=== PATIENT | female | born 1935 | race Caucasian/White ===

== ENCOUNTER → 2017-05-16 | Outpatient (CLI) | payer MEDICARE ==
[2017-05-16 10:48] LABS: ANION GAP 9 (5-19); BLOOD UREA NITROGEN 15 mg/dL (7-20); CALCIUM 9.9 mg/dL (8.4-10.2); CARBON DIOXIDE 33 mmol/L (22-30); CHLORIDE 96 mmol/L (98-107); CHOLESTEROL 201.54 mg/dL (0-200); CREATININE RESULT 0.98 mg/dL (0.52-1.25); Direct HDL 69 mg/dL (>40); GLUCOSE 86 mg/dL (75-110); POTASSIUM 4.6 mmol/L (3.6-5.0); SODIUM 137.9 mmol/L (137-145); TRIGLYCERIDES 90 mg/dL (<150)
[2017-05-16 10:59] LABS: DIRECT LDL 108 mg/dL (<100)
== END ==
LOC: OD 09:32
PROVIDERS: ATTEND Family Medicine
DX: E78.5 Hyperlipidemia, unspecified (principal); I10 Essential (primary) hypertension; Z79.899 Other long term (current) drug therapy
CPT/HCPCS: 36415; 80048; 80061; 83036; 84443

== ENCOUNTER 2017-06-17 17:55 | Emergency (ER) | payer MEDICARE ==
--- NOTE | 2017-06-17 19:33 | ER Document Report ---
ED General - General Chief Complaint: Back Pain Stated Complaint: BACK PAIN Time Seen by Provider: 06/17/17 19:11 Notes: Patient is an 82-year-old female comes emergency department for chief complaint of pain in her mid to lower back. She states she has had this for years, she states that she is frustrated because she has only had an x-ray of her lower back and she feels like the pain is from her mid back. She states she also believes that she was told she has glass in her back although she is not sure how this happened. She denies any numbness, incontinence, fever, or recent injury. She states that she was referred to pain management and was placed in a brace but the brace did not fit, she is supposed to go back to them tomorrow but she wants additional imaging before that happens. She states that she is okay as she is sitting and not moving but when she tries to get up she can get sharp pains and feels like she gets stuck at times. She declines pain medication at this time. She does not take any daily pain medications. TRAVEL OUTSIDE OF THE [place] IN LAST 30 DAYS: No - Related Data Allergies/Adverse Reactions: Penicillins Allergy (Mild, Verified 03/23/15 11:35) Hives cephalexin monohydrate [From Keflex] Allergy (Unknown, Verified 03/23/15 11:35) unknown propoxyphene HCl [From Darvon] Allergy (Unknown, Verified 03/23/15 11:35) unknown Past Medical History - General Information source: Patient - Social History Smoking Status: Former Smoker Chew tobacco use (# tins/day): No Frequency of alcohol use: None Drug Abuse: None Lives with: Family Family History: Reviewed & Not Pertinent - Past Medical History Cardiac Medical History: Reports: Hx Hypertension Denies: Hx Coronary Artery Disease, Hx Heart Attack Pulmonary Medical History: Denies: Hx Asthma, Hx Bronchitis, Hx COPD, Hx Pneumonia Neurological Medical History: Denies: Hx Cerebrovascular Accident, Hx Seizures Musculoskeltal Medical History: Denies Hx Arthritis Past Surgical History: Denies: Hx Hysterectomy - Immunizations Hx Diphtheria, Pertussis, Tetanus Vaccination: No Review of Systems - Review of Systems Constitutional: No symptoms reported EENT: No symptoms reported Cardiovascular: No symptoms reported Respiratory: No symptoms reported Gastrointestinal: No symptoms reported Genitourinary: No symptoms reported Female Genitourinary: No symptoms reported Musculoskeletal: See HPI Skin: No symptoms reported Hematologic/Lymphatic: No symptoms reported Neurological/Psychological: No symptoms reported Physical Exam - Vital signs Vitals: Temp Pulse Resp BP Pulse Ox 97.3 F 89 17 145/87 H 93 06/17/17 22:47 06/17/17 22:47 06/17/17 22:47 06/17/17 22:47 06/17/17 22:47 Interpretation: Normal - General General appearance: Appears well, Alert In distress: None - Patient sitting on the bed without any signs of distress - HEENT Head: Normocephalic, Atraumatic Eyes: Normal Conjunctiva: Normal Extraocular movements intact: Yes Eyelashes: Normal Pupils: PERRL Mouth/Lips: Normal Mucous membranes: Normal Pharynx: Normal Neck: Normal - Respiratory Respiratory status: No respiratory distress Chest status: Nontender Breath sounds: Normal Chest palpation: Normal - Cardiovascular Rhythm: Regular Heart sounds: Normal auscultation Murmur: No - Abdominal Inspection: Normal Distension: No distension Bowel sounds: Normal Tenderness: Nontender Organomegaly: No organomegaly - Back Back: Tender - Patient with general tenderness in the mid and paraspinal areas of the thoracic spine mainly, minimally also of the lumbar spine. No saddle anesthesia. Moves all extremities with normal strength and normal ROM (per patient). Normal distal N/V exam. Ambulates with limited difficulty. - Extremities General upper extremity: Normal inspection, Nontender, Normal color, Normal ROM , Normal temperature General lower extremity: Normal inspection, Nontender, Normal color, Normal ROM , Normal temperature, Normal weight bearing. No: Kaitlin's sign - Neurological Neuro grossly intact: Yes Cognition: Normal Orientation: AAOx4 [place] Coma Scale Eye Opening: Spontaneous [place] Coma Scale Verbal: Oriented Leanna Coma Scale Motor: Obeys Commands Leanna Coma Scale Total: 15 Speech: Normal Motor strength normal: LUE, RUE, LLE, RLE Sensory: Normal - Psychological Associated symptoms: Normal affect, Normal mood - Skin Skin Temperature: Warm Skin Moisture: Dry Skin Color: Normal Course - Re-evaluation Re-evalutation: Patient is a poor historian. Additional family members to bedside, they summarized better, basically stated patient has had ongoing difficulties with chronic back pain, she spends a lot of time with her arm placed on her back and just to be comfortable, occasionally she has difficulty getting up because of sharp pains, she has not had any concerning deficits, fevers, or symptoms other than pain in her back. They just want additional imaging to take with her to her pain management appointment tomorrow. Patient is supposed to be fitted with a brace tomorrow. They also ask if they can give something to the patient for episodes where she has additional pain and Tylenol is not working. Imaging performed, shows compression fractures, degenerative disc disease, significant evidence for patient's pain but no acute abnormalities. Patient with no neurological deficits were concerning red flag symptoms on exam. She is actually very well-appearing on my exam. She declines pain medication during her stay. She can ambulate. Provided copy of the reports and CDs to patient and family, provided with some pain management for options, discussed return symptoms in detail, they state they will follow-up tomorrow with pain management at the clinic. They state satisfaction and agreement. - Vital Signs Vital signs: Temp Pulse Resp BP Pulse Ox 97.3 F 89 17 145/87 H 93 06/17/17 22:47 06/17/17 22:47 06/17/17 22:47 06/17/17 22:47 06/17/17 22:47 Discharge - Discharge Clinical Impression: Back pain Qualifiers: Back pain location: thoracic back pain Chronicity: chronic Back pain laterality : unspecified Qualified Code(s): M54.6 - Pain in thoracic spine Condition: Stable Disposition: HOME, SELF-CARE Additional Instructions: Your imaging shows compression fractures and degenerative changes in your thoracic spine. These are probably the main reasons for your pain. Please take the reports and CDs to your pain management appointment tomorrow for additional evaluation and management. He had been given Rhodelia if needed for pain, take 1/2-1 tablet if needed for pain, take a stool softener additionally if you take the pain medication to avoid constipation. Return to the emergency department for any concerning or worsening symptoms including fever, increased pain, numbness, inability to urinate, accidental bowel movements, or any other concerning symptoms. Prescriptions: Docusate Sodium [Colace 100 mg Capsule] 100 mg PO DAILY #30 capsule Hydrocodone/Acetaminophen [Rhodelia 5-325 mg Tablet] 0.5 - 1 tab PO ASDIR #12 tablet Referrals: ADAM BILLINGSLEY MD [Primary Care Provider] - Follow up as needed
--- NOTE | 2017-06-17 22:06 | RADIOLOGY REPORT (SQ) ---
EXAM DESCRIPTION: CT THORACIC SPINE WITHOUT COMPLETED DATE/TIME: 06/17/2017 9:24 pm REASON FOR STUDY: sharp pain with movement COMPARISON: Chest CT scan dated February 2015 TECHNIQUE: Axial images acquired through the thoracic spine without intravenous contrast. Images re viewed with lung, soft tissue and bone windows. Reconstructed coronal and sagittal MPR images review ed. Images stored on PACS. All CT scanners at this facility use dose modulation, iterative reconstruction, and/or weight based d osing when appropriate to reduce radiation dose to as low as reasonably achievable (ALARA). [facility]: Dose Right [facility]: CareDose [facility]: Dose Right [facility]: Teradose 4D [facility]: [employer] RADIATION DOSE: mGy. LIMITATIONS: None. FINDINGS: VISUALIZED LUNGS: No acute opacities. No pneumothorax. SOFT TISSUES: No soft tissue swelling. No masses. VERTEBRAL BODIES: There is compression of the superior endplate of the T5 vertebra with approximately 50% loss of the vertebral body height. There is anterior wedging of the T6 vertebra with approximat es 75 percent loss of the the vertebral body height anteriorly. There is almost complete compress ion of the T7 vertebra. The findings in the T5 and T6 vertebra appears slightly more pronounced as c ompared to the previous study. The complete compression of the T7 vertebra was not present on the pr evious study. No other vertebral compressions are identified. DISCS: No significant disc space narrowing. ALIGNMENT: There is kyphotic angulation of the thoracic spine TRANSVERSE PROCESSES, POSTERIOR ELEMENTS: No fractures. No dislocation. No acute findings. HARDWARE: None in the spine. VISUALIZED RIBS: No fractures. OTHER: No other significant finding. IMPRESSION: Multiple thoracic compression fractures as noted above show progression when correlated with the previous chest CT scan. Other findings as noted above TECHNICAL DOCUMENTATION: JOB ID: [id number] Quality ID # [id number]: Final reports with documentation of one or more dose reduction techniques (e.g., Au tomated exposure control, adjustment of the mA and/or kV according to patient size, use of iterative reconstruction technique) 2010 [employer]- All Rights Reserved
--- NOTE | 2017-06-17 22:15 | RADIOLOGY REPORT (SQ) ---
EXAM DESCRIPTION: CT LUMBAR SPINE WITHOUT COMPLETED DATE/TIME: 06/17/2017 9:24 pm REASON FOR STUDY: sharp pain with movement COMPARISON: Abdominal CT scan dated February 2015 TECHNIQUE: Axial images acquired through the lumbar spine without intravenous contrast. Images revi ewed with lung, soft tissue and bone windows. Reconstructed coronal and sagittal MPR images reviewed . All images stored on PACS. All CT scanners at this facility use dose modulation, iterative reconstruction, and/or weight based d osing when appropriate to reduce radiation dose to as low as reasonably achievable (ALARA). [facility]: Dose Right [facility]: CareDose [facility]: Dose Right [facility]: Teradose 4D [facility]: [employer] RADIATION DOSE: mGy. LIMITATIONS: None. FINDINGS: SEGMENTATION: Normal. No transitional anatomy. ALIGNMENT: Normal. VERTEBRAL BODIES: There is compression of the superior endplate of the L2 vertebra with approximately 25% decrease in the vertebral body height. There is compression of the superior and inferior endpla baldomero of the L3 vertebra with approximately 50% decrease in the vertebral body height. There is compre ssion of the superior endplate of the L4 vertebra with approximately 50% decrease in the vertebral andreea dy heights. None of these findings were present on the previous abdominal CT scan. No other vertebr al compressions are identified. DISCS: No significant protrusions. Study limited by lack of intrathecal contrast. PEDICLES, TRANSVERSE PROCESSES: No fractures. No dislocation. No acute findings. FACETS, POSTERIOR ELEMENTS: No fractures. No dislocation. Degenerative changes are identified in th e facet articulations at multiple levels HARDWARE: None in the spine. VISUALIZED RIBS: No fractures. SOFT TISSUES: No significant or acute finding in adjacent soft tissues. OTHER: No other significant finding. IMPRESSION: Multiple vertebral compressions involving the L 2, L3, and L4 vertebra as noted above. These findings were not present on the previous abdominal CT scan. Clinical correlation is recommend ed. Other findings as noted above TECHNICAL DOCUMENTATION: JOB ID: [id number] Quality ID # [id number]: Final reports with documentation of one or more dose reduction techniques (e.g., Au tomated exposure control, adjustment of the mA and/or kV according to patient size, use of iterative reconstruction technique) 2010 [employer]- All Rights Reserved
[2017-06-17] MEDS ORDERED: HYDROCODONE/ACETAMINOPHEN 5-325 MG 6 TAB/DSPK PO PRN (22:30)
[2017-06-17 22:49] VITALS: BP 145/87
== END 2017-06-17 23:15 | disposition home or self-care (01) ==
LOC: ER 17:55
DX: M54.6 Pain in thoracic spine (principal); G89.29 Other chronic pain; I10 Essential (primary) hypertension; Z87.891 Personal history of nicotine dependence; Z88.0 Allergy status to penicillin
CPT/HCPCS: 99284; 72128; 72131; A9270

== ENCOUNTER 2017-07-06 15:05 | Emergency (ER) | payer MEDICARE ==
[2017-07-06 15:12] VITALS: BP 151/87
[2017-07-06] MEDS ORDERED: ASPIRIN 81 MG TABLET, CHEWABLE PO ONE (15:28)
--- NOTE | 2017-07-06 15:36 | ER Document Report ---
ED Medical Screen (RME) - General Mode of Arrival: Wheelchair TRAVEL OUTSIDE OF THE [place] IN LAST 30 DAYS: No - General Chief Complaint: Leg Swelling Stated Complaint: LEG PAIN Time Seen by Provider: 07/06/17 15:20 Notes: Patient is an 82 year old female presenting to the emergency department for swelling, blistering, and erythema to her lower extremities. Patient states she first noticed her legs on Friday and they worsened yesterday. Patient denies any recent long trips, recent surgery, personal or family history of blood clots , history of kidney problems or anemia. Patient did fall x1 month ago and had fractures in her vertebrae. Patient has been seeing [facility] and has been wearing a back brace for such. Patient's brother states that the patient has not had her feet raised for about 1 month because she sits and sleeps in a recliner due to her back injury. Patient states that she is also slightly short of breath which improves with laying flat. Patient is a former smoker. (JUSTYNA DARDEN) - Related Data Allergies/Adverse Reactions: Penicillins Allergy (Mild, Verified 07/06/17 15:11) Hives cephalexin monohydrate [From Keflex] Allergy (Unknown, Verified 07/06/17 15:11) unknown propoxyphene HCl [From Darvon] Allergy (Unknown, Verified 07/06/17 15:11) unknown Past Medical History - Social History Chew tobacco use (# tins/day): No Frequency of alcohol use: None Drug Abuse: None - Past Medical History Cardiac Medical History: Reports: Hx Hypertension Denies: Hx Coronary Artery Disease, Hx Heart Attack Pulmonary Medical History: Denies: Hx Asthma, Hx Bronchitis, Hx COPD, Hx Pneumonia Neurological Medical History: Denies: Hx Cerebrovascular Accident, Hx Seizures Renal/ Medical History: Denies: Hx Peritoneal Dialysis Musculoskeltal Medical History: Denies Hx Arthritis Past Surgical History: Denies: Hx Hysterectomy - Immunizations Hx Diphtheria, Pertussis, Tetanus Vaccination: No Physical Exam - Vital signs Vitals: Temp Pulse Resp BP Pulse Ox 97.9 F 82 18 151/87 H 97 07/06/17 15:12 07/06/17 15:12 07/06/17 15:12 07/06/17 15:12 07/06/17 15:12 - Notes Notes: GENERAL: Alert, interacts well. No acute distress. LUNGS: Clear to auscultation bilaterally, no wheezes, rales, or rhonchi. No respiratory distress. HEART: Regular rate and rhythm. No murmurs, gallops, or rubs. EXTREMITIES: Moves all 4 extremities spontaneously. Left leg: Erythema 3/[address] the knee. 3+ pitting edema above the left knee. Clear fluid filled blisters, petechiae, clear fluid seeping from the leg. Right leg: Erythema, 1+ pitting edema level to the knee. NEUROLOGICAL: Alert and oriented x3. Normal speech. (JUSTYNA DARDEN) - Vital Signs Vital signs: Temp Pulse Resp BP Pulse Ox 97.9 F 82 18 151/87 H 97 07/06/17 15:12 07/06/17 15:12 07/06/17 15:12 07/06/17 15:12 07/06/17 15:12 Scribe Documentation - Scribe Written by Scribe:: Pamela Gomez 07/06/17 16:03 acting as scribe for :: Amadeo
--- NOTE | 2017-07-06 16:06 | ER Document Report ---
ED General - General Chief Complaint: Leg Swelling Stated Complaint: LEG PAIN Time Seen by Provider: 07/06/17 15:20 Mode of Arrival: Wheelchair Information source: Patient Notes: 82-year-old female presents with complaints of left lower extremity swelling redness as of this morning. Patient was seen at urgent care noted to have a positive d-dimer and sent in for evaluation for possible blood clot Patient refuses to lay down have blood work drawn or be admitted TRAVEL OUTSIDE OF THE [place] IN LAST 30 DAYS: No - HPI Onset: This morning Onset/Duration: Sudden Quality of pain: Achy Severity: Mild Pain Level: 1 Associated symptoms: Other Exacerbated by: Denies Relieved by: Denies Similar symptoms previously: No Recently seen / treated by doctor: Yes - Related Data Allergies/Adverse Reactions: Penicillins Allergy (Mild, Verified 07/06/17 15:11) Hives cephalexin monohydrate [From Keflex] Allergy (Unknown, Verified 07/06/17 15:11) unknown propoxyphene HCl [From Darvon] Allergy (Unknown, Verified 07/06/17 15:11) unknown Past Medical History - Social History Smoking Status: Former Smoker Cigarette use (# per day): No Chew tobacco use (# tins/day): No Smoking Education Provided: No Frequency of alcohol use: None Drug Abuse: None Family History: Reviewed & Not Pertinent - Past Medical History Cardiac Medical History: Reports: Hx Hypertension Denies: Hx Coronary Artery Disease, Hx Heart Attack Pulmonary Medical History: Denies: Hx Asthma, Hx Bronchitis, Hx COPD, Hx Pneumonia Neurological Medical History: Denies: Hx Cerebrovascular Accident, Hx Seizures Renal/ Medical History: Denies: Hx Peritoneal Dialysis Musculoskeltal Medical History: Denies Hx Arthritis Past Surgical History: Denies: Hx Hysterectomy - Immunizations Hx Diphtheria, Pertussis, Tetanus Vaccination: No Review of Systems - Review of Systems Notes: REVIEW OF SYSTEMS: CONSTITUTIONAL : Denies fever, chills, or sweats. Denies recent illness. EENT: Denies eye, ear, throat, or mouth pain or symptoms. Denies nasal or sinus congestion or discharge. Denies throat, tongue, or mouth swelling or difficulty swallowing. CARDIOVASCULAR: Denies chest pain. Denies palpitations or racing or irregular heart beat. Denies ankle edema. RESPIRATORY: Denies cough, cold, or chest congestion. Denies shortness of breath, difficulty breathing, or wheezing. GASTROINTESTINAL: Denies abdominal pain or distention. Denies nausea, vomiting , or diarrhea. Denies blood in vomitus, stools, or per rectum. Denies black, tarry stools. Denies constipation. GENITOURINARY: Denies difficulty urinating, painful urination, burning, frequency, blood in urine, or discharge. FEMALE GENITOURINARY: Denies vaginal bleeding, heavy or abnormal periods, irregular periods. Denies vaginal discharge or odor. MUSCULOSKELETAL: Denies back or neck pain or stiffness. Denies joint pain or swelling. SKIN: Admits to left lower extremity erythema HEMATOLOGIC : Denies easy bruising or bleeding. LYMPHATIC: Denies swollen, enlarged glands. NEUROLOGICAL: Denies confusion or altered mental status. Denies passing out or loss of consciousness. Denies dizziness or lightheadedness. Denies headache. Denies weakness or paralysis or loss of use of either side. Denies problems with gait or speech. Denies sensory loss, numbness, or tingling. Denies seizures. PSYCHIATRIC: Denies anxiety or stress. Denies depression, suicidal ideation, or homicidal ideation. ALL OTHER SYSTEMS REVIEWED AND NEGATIVE. PHYSICAL EXAMINATION: GENERAL: Well-appearing, well-nourished and in no acute distress. HEAD: Atraumatic, normocephalic. EYES: Pupils equal round and reactive to light, extraocular movements intact, conjunctiva are normal. ENT: Nares patent, oropharynx clear without exudates. Moist mucous membranes. NECK: Normal range of motion, supple without lymphadenopathy LUNGS: Breath sounds clear to auscultation bilaterally and equal. No wheezes rales or rhonchi. HEART: Regular rate and rhythm without murmurs ABDOMEN: Soft, nontender, nondistended abdomen. No guarding, no rebound. No masses appreciated. Female : deferred Musculoskeletal: Normal range of motion, no pitting or edema. No cyanosis. NEUROLOGICAL: Cranial nerves grossly intact. Normal speech, normal gait. Normal sensory, motor exams PSYCH: Normal mood, normal affect. SKIN: +1 pitting edema of the left lower extremity with redness midshin Dictation was performed using [employer] voice recognition software Physical Exam - Vital signs Vitals: Temp Pulse Resp BP Pulse Ox 97.9 F 82 18 151/87 H 97 07/06/17 15:12 07/06/17 15:12 07/06/17 15:12 07/06/17 15:12 07/06/17 15:12 Course - Re-evaluation Re-evalutation: 07/06/17 19:33 Doppler was negative, patient overall looks well admits to chronic back pain but otherwise no distress. She defers on admission further imaging as well as lab work. Brother who is in the room request patient be admitted for social reasons, when I spoke to the patient herself she refuses again As a result brother is agreeable to take patient home I did outline the cellulitis and have given very strict return precautions Patient has been told that she must return immediately if the symptoms do worsen After performing a Medical Screening Examination, I estimate there is LOW risk for OPEN FRACTURE, COMPARTMENT SYNDROME, TENDON RUPTURE, ACUTE NEUROVASCULAR INJURY, or RETAINED FOREIGN BODY, thus I consider the discharge disposition reasonable. Also, there is no evidence or peritonitis, sepsis, or toxicity. I have reevaluated this patient multiple times and no significant life threatening changes are noted. The patient and I have discussed the diagnosis and risks, and we agree with discharging home with close follow-up with the understanding that symptoms and presentations can change. We also discussed returning to the Emergency Department immediately if new or worsening symptoms occur. We have discussed the symptoms which are most concerning (e.g., changing or worsening pain, fever, numbness, weakness, cool or painful digits) that necessitate immediate return. - Vital Signs Vital signs: Temp Pulse Resp BP Pulse Ox 97.9 F 82 18 151/87 H 97 07/06/17 15:12 07/06/17 15:12 07/06/17 15:12 07/06/17 15:12 07/06/17 15:12 - Diagnostic Test Radiology reviewed: Image reviewed, Reports reviewed - No DVT Discharge - Discharge Clinical Impression: Cellulitis Qualifiers: Site of cellulitis: extremity Site of cellulitis of extremity: lower extremity Laterality: left Qualified Code(s): L03.116 - Cellulitis of left lower limb Condition: Stable Disposition: HOME, SELF-CARE Instructions: Cellulitis ([facility]) Prescriptions: Clindamycin HCl 300 mg PO Q6 #40 capsule Referrals: ADAM BILLINGSLEY MD [Primary Care Provider] - Follow up as needed
--- NOTE | 2017-07-06 16:44 | RADIOLOGY REPORT (SQ) ---
EXAM DESCRIPTION: VENOUS UNILATERAL LOWER COMPLETED DATE/TIME: 07/06/2017 4:36 pm REASON FOR STUDY: left leg swelling, 2x larger than right leg COMPARISON: None. TECHNIQUE: Dynamic and static dickson scale and color images acquired of the left leg venous system. Se lected spectral images acquired with additional compression and augmentation maneuvers. The contralat eral common femoral vein and saphenofemoral junction were also imaged. Images stored on PACS. LIMITATIONS: None. FINDINGS: COMMON FEMORAL: Normal phasicity, compression and augmentation. No visualized echogenic ma terial on dickson scale. No defects on color images. FEMORAL: Normal compression and augmentation. No visualized echogenic material on dickson scale. No defe cts on color images. POPLITEAL: Normal compression, augmentation. No visualized echogenic material on dickson scale. No defec ts on color images. CALF VESSELS: Normal compression, augmentation. No visualized echogenic material on dickson scale. No de fects on color images. GSV and SSV: Normal compression, augmentation. No visualized echogenic material on dickson scale. No def ects on color images. ANY DEEP VENOUS INSUFFICIENCY: Not evaluated. ANY EVIDENCE OF POPLITEAL CYST: No. OTHER: No other significant finding. CONTRALATERAL COMMON FEMORAL VEIN AND SAPHENOFEMORAL JUNCTION: Normal phasicity, compression and augmentation. No visualized echogenic material on dickson scale. No de fects on color images. IMPRESSION: NO EVIDENCE DVT OR SVT IN THE LEFT LEG. TECHNICAL DOCUMENTATION: JOB ID: [id number] [employer]- All Rights Reserved
--- NOTE | 2017-07-07 06:27 | EKG REPORT ---
SEVERITY:- ABNORMAL ECG - SINUS RHYTHM CONSIDER LEFT VENTRICULAR HYPERTROPHY : Confirmed by: Graciela Potter MD 07-Jul-2017 06:26:15
== END 2017-07-06 17:20 | disposition home or self-care (01) ==
LOC: ER 15:05
DX: L03.116 Cellulitis of left lower limb (principal); G89.29 Other chronic pain; M54.9 Dorsalgia, unspecified; Z88.0 Allergy status to penicillin; Z87.891 Personal history of nicotine dependence
CPT/HCPCS: 93005; 99284; 93971; 93010; A9270

== ENCOUNTER 2017-07-28 14:23 | Inpatient (IN) | payer MEDICARE ==
--- NOTE | 2017-07-28 14:35 | ER Document Report ---
ED Fall - General Stated Complaint: PREVIOUS FALL Time Seen by Provider: 07/28/17 14:35 TRAVEL OUTSIDE OF THE [place] IN LAST 30 DAYS: No - Related data Allergies/Adverse Reactions: Penicillins Allergy (Mild, Verified 07/06/17 15:11) Hives cephalexin monohydrate [From Keflex] Allergy (Unknown, Verified 07/06/17 15:11) unknown propoxyphene HCl [From Darvon] Allergy (Unknown, Verified 07/06/17 15:11) unknown Past Medical History - Social History Family History: Reviewed & Not Pertinent - Past Medical History Cardiac Medical History: Reports: Hx Hypertension Denies: Hx Coronary Artery Disease, Hx Heart Attack Pulmonary Medical History: Denies: Hx Asthma, Hx Bronchitis, Hx COPD, Hx Pneumonia Neurological Medical History: Denies: Hx Cerebrovascular Accident, Hx Seizures Renal/ Medical History: Denies: Hx Peritoneal Dialysis Musculoskeltal Medical History: Denies Hx Arthritis Past Surgical History: Denies: Hx Hysterectomy - Immunizations Hx Diphtheria, Pertussis, Tetanus Vaccination: No
--- NOTE | 2017-07-28 14:47 | ER Document Report ---
HPI - HPI Patient complains to provider of: Injured left knee Onset: This morning Onset/Duration: Sudden Context: 82-year-old female slipped and fell on her left/side knee while leaving Dr. Nielsen's office. He checked her out in the office and said she was okay but her brother who is now living with her wanted her to be rechecked, so after they got her to the car via wheelchair he called EMS to bring her to the ER because she could not ambulate. She does have a walker but she was not using it , only a "walking stick". The brother wants her admitted to the hospital because he states he could not get her in the house and he has to go back to [facility] there is a female in the room who was unable to physically help her as well. I have called Trell Mcguire RN to see if she can help with the situation. Associated Symptoms: None Exacerbated by: Movement Relieved by: Denies Similar symptoms previously: No Recently seen / treated by doctor: Yes - dr nielsen office - ROS ROS below otherwise negative: Yes Systems Reviewed and Negative: Yes All other systems reviewed and negative Past Medical History - General Information source: Patient - Social History Smoking Status: Unknown if Ever Smoked Frequency of alcohol use: None Drug Abuse: None Lives with: Alone Family History: Reviewed & Not Pertinent - Past Medical History Cardiac Medical History: Reports: Hx Hypertension Renal/ Medical History: Denies: Hx Peritoneal Dialysis Surgical Hx: Negative - Immunizations Hx Diphtheria, Pertussis, Tetanus Vaccination: No Vertical Provider Document - CONSTITUTIONAL Agree With Documented VS: Yes Exam Limitations: No Limitations General Appearance: Mild Distress - left knee - INFECTION CONTROL TRAVEL OUTSIDE OF THE [place] IN LAST 30 DAYS: No - HEENT HEENT: Normocephalic - NECK Neck: Supple - non tender - RESPIRATORY Respiratory: Breath Sounds Normal, No Respiratory Distress - CARDIOVASCULAR Cardiovascular: Regular Rate, Regular Rhythm - GI/ABDOMEN Gastrointestinal: Abdomen Soft, Abdomen Non-Tender, No Organomegaly - BACK Back: Normal Inspection - non tender spine - MUSCULOSKELETAL/EXTREMETIES Musculoskeletal/Extremeties: Tender - lateral left knee and behind the knee, Edema - bilateral lower leg, left more than right, 2 + diana DP, tender left medial thigh muscle with limited left knee flexion, no charlie tenderness, bruising lateral left knee Notes: non tender c spine, arms, t and L spine, non tender with hip palpation and pelvic movement - NEURO Level of Consciousness: Awake, Alert Motor/Sensory: No Motor Deficit, No Sensory Deficit - DERM Integumentary: Warm, Dry, No Rash Course - Re-evaluation Re-evalutation: 07/28/17 16:12 X-ray is negative knee. 07/28/17 17:10 unable to ambulate with assistance, able to bear weight but can't move forward on either leg. because of this ordered left hip xray as she was pointing to posterior left thigh for pain location. 07/28/17 19:13 dr lindquist is admitting to observation medical floor. ordered diet for the pt. explained to pt and her brother. I also called dr. nielsen to let him know what was going on. - Laboratory Result Diagrams: 07/28/17 18:15 07/28/17 18:15 Discharge - Discharge Clinical Impression: Left knee injury, left pubic ramas fracture, new non abulatory due to fracture Condition: Stable Disposition: ADMITTED OBSERVATION Admitting Provider: Hospitalist Unit Admitted: Medical Floor Referrals: ADAM NIELSEN MD [HONORARY] - Follow up as needed ABEBA BORREGO MD [ACTIVE STAFF] - Follow up as needed
--- NOTE | 2017-07-28 15:59 | RADIOLOGY REPORT (SQ) ---
EXAM DESCRIPTION: KNEE LEFT 4 VIEW COMPLETED DATE/TIME: 07/28/2017 3:46 pm REASON FOR STUDY: slipped injured left knee COMPARISON: None. NUMBER OF VIEWS: Four views. TECHNIQUE: AP, lateral, and both oblique radiographic images acquired of the left knee. LIMITATIONS: None. FINDINGS: MINERALIZATION: Osteopenia. BONES: No acute fracture or dislocation. No worrisome bone lesions. JOINT: No effusion. SOFT TISSUES: No soft tissue swelling. No radio-opaque foreign body. OTHER: No other significant finding. IMPRESSION: NO RADIOGRAPHIC EVIDENCE OF ACUTE INJURY. TECHNICAL DOCUMENTATION: JOB ID: [id number] [employer] All Rights Reserved
[2017-07-28] MEDS ORDERED: ONDANSETRON 4 MG TAB.RAPDIS PO ONE (16:27)
[2017-07-28] MEDS ORDERED: HYDROCODONE/ACETAMINOPHEN 5-325 MG TABLET PO ONE (16:27)
--- NOTE | 2017-07-28 17:21 | RADIOLOGY REPORT (SQ) ---
EXAM DESCRIPTION: HIP LEFT AP/LATERAL COMPLETED DATE/TIME: 07/28/2017 4:57 pm REASON FOR STUDY: fall COMPARISON: None. NUMBER OF VIEWS: Two views. TECHNIQUE: AP pelvis and additional frog-leg view of the left hip. LIMITATIONS: None. FINDINGS: MINERALIZATION: Normal. LEFT HIP: No fracture or dislocation. No worrisome bone lesions. RIGHT HIP: No fracture or dislocation. No worrisome bone lesions. PUBIS AND ISCHIUM: There appear to be fractures of the left pubic rami. PELVIS: No fracture. SACRUM: No fracture or dislocation. No worrisome bone lesions. LOWER LUMBAR SPINE: No fracture or dislocation. No worrisome bone lesions. No significant disc disea se. SOFT TISSUES: No findings. OTHER: No other significant finding. IMPRESSION: Fractures of the left pubic rami. TECHNICAL DOCUMENTATION: JOB ID: [id number] [employer]- All Rights Reserved
[2017-07-28] MEDS ORDERED: ACETAMINOPHEN 325 MG TABLET PO ONE (17:45)
[2017-07-28 18:30] LABS: ABSOLUTE BASOPHILS # (AUTO) 0.1 10^3/uL (0.0-0.2); ABSOLUTE EOSINOPHILS # (AUTO) 0.1 10^3/uL (0.0-0.6); ABSOLUTE MONOCYTES (AUTO) 0.7 10^3/uL (0.1-1.4); ABSOLUTE NEUT (AUTO) 5.9 10^3/uL (1.7-8.2); BASOPHILS % (AUTO) 0.9 % (0-2); EOSINOPHILS % (AUTO) 1.4 % (0-6); HEMATOCRIT 39.7 % (36.0-47.0); HEMOGLOBIN 13.1 g/dL (12.0-15.5); HGB HCT DIFFERENCE -0.4; LYMPHOCYTES % (AUTO) 12.9 % (13-45); MEAN CORPUSCULAR HEMOGLOBIN 30.4 pg (27.0-33.4); MEAN CORPUSCULAR HGB CONC 32.9 g/dL (32.0-36.0); MEAN CORPUSCULAR VOLUME 92 fl (80-97); MONOCYTES % (AUTO) 9.3 % (3-13); RED CELL DISTRIBUTION WIDTH 13.1 % (11.5-14.0); SEGMENTED NEUTROPHILS % (AUTO) 75.5 % (42-78); WHITE BLOOD COUNT 7.9 10^3/uL (4.0-10.5)
[2017-07-28 18:50] LABS: ALANINE AMINOTRANSFERASE 43 U/L (9-52); ALBUMIN 3.7 g/dL (3.5-5.0); ALKALINE PHOSPHATASE 132 U/L (38-126); ANION GAP 8 (5-19); ASPARTATE AMINO TRANSFERASE 63 U/L (14-36); BILIRUBIN,DIRECT 0.4 mg/dL (0.0-0.4); BILIRUBIN,TOTAL 0.6 mg/dL (0.2-1.3); BLOOD UREA NITROGEN 17 mg/dL (7-20); CARBON DIOXIDE 34 mmol/L (22-30); CHLORIDE 98 mmol/L (98-107); CREATININE RESULT 0.78 mg/dL (0.52-1.25); GLUCOSE 114 mg/dL (75-110); POTASSIUM 3.5 mmol/L (3.6-5.0); SODIUM 140.2 mmol/L (137-145); TOTAL PROTEIN 6.3 g/dL (6.3-8.2)
[2017-07-28] MEDS ORDERED: ACETAMINOPHEN 325 MG TABLET PO PRN (19:10)
[2017-07-28] MEDS ORDERED: HYDRALAZINE HCL INJ/PF 20 MG/1 ML SDV IV PRN (19:10)
[2017-07-28] MEDS ORDERED: MAG HYDROX/AL HYDROX/SIMETH SUSP 30 ML UDCUP PO PRN (19:11)
[2017-07-28] MEDS: KETOROLAC TROMETHAMINE INJ/PF 30 MG/1 ML SDV IV PRN (20:36)
[2017-07-28] MEDS: HEPARIN SOD (PORCINE) 5,000 UNIT/ML 1 ML SYRINGE SUBCUT SCH (23:08)
[2017-07-29] MEDS: CLINDAMYCIN HCL 150 MG CAPSULE PO SCH ×3 (01:50→19:34)
--- NOTE | 2017-07-29 05:32 | PDOC H&P ---
History of Present Illness Admission Date/PCP: 07/28/17 19:11 Patient complains of: Falls and hip pain History of Present Illness: PRAMOD CHRISTOPHER is a 82 year old female with a past medical history of hypertension and dementia who is a very poor historian and is brought to the emergency room after sustaining a fall left hip resulting in inability to tolerate weight or ambulate. Patient was at her primary care providers office Dr. Nielsen when attempted ambulation without front wheeled walker resulting in mechanical fall. She denies prior or subsequent headache, lightheadedness, dizziness, head trauma, loss of consciousness, chest pain or palpitations. In the emergency room she is found to have a left-sided pelvic fracture and inability to tolerate weight and subsequently referred to the hospitalist for admission. Past Medical History Cardiac Medical History: Reports: Hypertension Denies: Coronary Artery Disease, Myocardial Infarction Pulmonary Medical History: Denies: Asthma, Bronchitis, Chronic Obstructive Pulmonary Disease (COPD), Pneumonia Neurological Medical History: Denies: Seizures Musculoskeltal Medical History: Denies: Arthritis Psychiatric Medical History: Reports: Dementia Denies: Depression Hematology: Denies: Anemia Past Surgical History Past Surgical History: Denies: Hysterectomy Social History Information Source: Emergency Med Personnel Lives with: Alone Smoking Status: Unknown if Ever Smoked Frequency of Alcohol Use: None Hx Recreational Drug Use: No Drugs: None Hx Prescription Drug Abuse: No - Advance Directive Resuscitation Status: Full Code Family History Family History: Other - Unknown to the patient Parental Family History Reviewed: No - Unknown to the patient Children Family History Reviewed: No Sibling(s) Family History Reviewed.: No Medication/Allergy Home Medications: Bisoprolol/Hydrochlorothiazide [Ziac 2.5-6.25 mg Tablet] 1 tab PO DAILY Allergies/Adverse Reactions: Penicillins Allergy (Mild, Verified 07/06/17 15:11) Hives cephalexin monohydrate [From Keflex] Allergy (Unknown, Verified 07/06/17 15:11) unknown propoxyphene HCl [From Darvon] Allergy (Unknown, Verified 07/06/17 15:11) unknown Review of Systems ROS unobtainable: Due to mental status Physical Exam Vital Signs: Temp Pulse Resp BP Pulse Ox 98.4 F 88 24 H 132/74 H 97 07/28/17 23:29 07/28/17 23:29 07/28/17 23:29 07/28/17 23:29 07/28/17 23:29 Intake & Output 07/27/17 07/28/17 07/29/17 11:59 11:59 11:59 Intake Total 0 Output Total 0 Balance 0 Weight 46 kg General appearance: PRESENT: cooperative, mild distress, thin Head exam: PRESENT: atraumatic, normocephalic Eye exam: PRESENT: conjunctiva pink, EOMI, PERRLA. ABSENT: scleral icterus Ear exam: PRESENT: bleeding Mouth exam: PRESENT: moist, tongue midline Neck exam: ABSENT: carotid bruit, JVD, lymphadenopathy, thyromegaly Respiratory exam: PRESENT: clear to auscultation diana. ABSENT: rales, rhonchi, wheezes Cardiovascular exam: PRESENT: RRR. ABSENT: diastolic murmur, rubs, systolic murmur Pulses: PRESENT: normal dorsalis pedis pul Vascular exam: PRESENT: normal capillary refill GI/Abdominal exam: PRESENT: normal bowel sounds, soft. ABSENT: distended, guarding, mass, organolmegaly, rebound, tenderness Rectal exam: PRESENT: deferred Extremities exam: PRESENT: tenderness, other - Erythema bilateral, lower extremity. ABSENT: calf tenderness, clubbing, pedal edema Musculoskeletal exam: PRESENT: tenderness - Range of motion with hip flexion reproduces pain to the left hip. ABSENT: ambulatory, deformity, dislocation Neurological exam: PRESENT: alert, awake, oriented to person, CN II-XII grossly intact. ABSENT: oriented to place, oriented to time, oriented to situation Psychiatric exam: PRESENT: appropriate affect, normal mood. ABSENT: homicidal ideation, suicidal ideation Results Impressions: Knee X-Ray 07/28/17 14:46 IMPRESSION: NO RADIOGRAPHIC EVIDENCE OF ACUTE INJURY. Hip X-Ray 07/28/17 16:26 IMPRESSION: Fractures of the left pubic rami. Assessment & Plan - Diagnosis (1) Pelvic fracture Is this a current diagnosis for this admission?: Yes Plan: Secondary to fall likely vitamin D deficient, noncompliance with walker and recurrent falls. Symptomatic management and physical therapy (2) Hypertension Is this a current diagnosis for this admission?: Yes Plan: Home regiment of AILYN inhibitor and hydrochlorothiazide. (3) Falls Is this a current diagnosis for this admission?: Yes Plan: Physical therapy will likely require rehab (4) Cellulitis, leg Is this a current diagnosis for this admission?: Yes Plan: Bilateral lower extremity with chronic vascular changes likely component of venous stasis. Recently started on clindamycin will continue. (5) Vascular dementia Qualifiers: Dementia behavioral disturbance: without behavioral disturbance Qualified Code(s): F01.50 - Vascular dementia without behavioral disturbance Is this a current diagnosis for this admission?: Yes Plan: Supportive care - Time Time Spent: 50 to 70 Minutes - Inpatient Certification Medical Necessity: Need Close Monitoring Due to Risk of Patient Decompensation Post Hospital Care: D/C Aviation Medicine Specialist Documentation
[2017-07-29] MEDS: HEPARIN SOD (PORCINE) 5,000 UNIT/ML 1 ML SYRINGE SUBCUT SCH ×3 (05:36→21:41)
[2017-07-29 05:53] LABS: ABSOLUTE BASOPHILS # (AUTO) 0.1 10^3/uL (0.0-0.2); ABSOLUTE EOSINOPHILS # (AUTO) 0.2 10^3/uL (0.0-0.6); ABSOLUTE LYMPHOCYTES (AUTO) 0.9 10^3/uL (0.5-4.7); ABSOLUTE MONOCYTES (AUTO) 0.5 10^3/uL (0.1-1.4); ABSOLUTE NEUT (AUTO) 3.2 10^3/uL (1.7-8.2); BASOPHILS % (AUTO) 1.3 % (0-2); EOSINOPHILS % (AUTO) 3.6 % (0-6); HEMATOCRIT 33.6 % (36.0-47.0); HEMOGLOBIN 11.3 g/dL (12.0-15.5); HGB HCT DIFFERENCE 0.3; LYMPHOCYTES % (AUTO) 19.5 % (13-45); MEAN CORPUSCULAR HEMOGLOBIN 30.4 pg (27.0-33.4); MEAN CORPUSCULAR HGB CONC 33.7 g/dL (32.0-36.0); MEAN CORPUSCULAR VOLUME 90 fl (80-97); MONOCYTES % (AUTO) 10.4 % (3-13); RED BLOOD COUNT 3.72 10^6/uL (3.72-5.28); SEGMENTED NEUTROPHILS % (AUTO) 65.2 % (42-78); WHITE BLOOD COUNT 4.8 10^3/uL (4.0-10.5)
[2017-07-29] MEDS ORDERED: BISOPROLOL PO SCH (10:00)
[2017-07-29] MEDS ORDERED: HYDROCHLOROTHIAZIDE PO SCH (10:00)
--- NOTE | 2017-07-29 10:29 | Physician Advisory Note ---
Physician Advisor ProgressNote .: Pursuant to the plan for [facility], I have reviewed the medical record for this patient. Physician Advisor Statement: Please consider documenting, if you agree: 1. "underweight with protein-calorie malnutrition [state mild, mod, or severe] with BMI 18.5, ..." [?wt loss, ?appetite loss, ] [if possible, give specifics on intake, wt loss, loss of SQ fat & muscle mass, diminished hand vp product strength, & clinical importance such as (A) nutritional assessment ordered, (B) modified diet or supplements ordered, (C) additional labs ordered, (D) prolonged wound healing time, (E) delayed infxn clearance] Status: Appropriately Obs for fall/pelvic fx/pain, being tx'd with prn Tylenol/Ketorolac , PT. If she evidences need for frequent IV meds w/close monitoring needed, or develops another acute clinical issue that requires ongoing care/monitoring that could not be achieved in an outpt setting such as SNF or [facility], please document them & attending concerns, and status determination may re-assessed. (Unfortunately, payers require this level of need for pt to be Inpt, even tho' we know the pt couldn't get to a SNF or [facility] right now without 3 MNs Inpt 1st. Very sad Catch-22 for these patients, upsetting for those who care for them.) CK
[2017-07-29] MEDS: HYDROCHLOROTHIAZIDE 25 MG TABLET PO SCH (10:53)
[2017-07-29] MEDS: DOCUSATE SODIUM 100 MG CAPSULE PO SCH ×2 (11:16→19:36)
[2017-07-29] MEDS ORDERED: ATENOLOL 50 MG TABLET PO ONE (13:00)
[2017-07-29] MEDS: ATENOLOL 50 MG TABLET PO SCH (13:04)
[2017-07-29] MEDS: KETOROLAC TROMETHAMINE INJ/PF 30 MG/1 ML SDV IV PRN (13:58)
--- NOTE | 2017-07-29 18:21 | PDOC PROGRESS REPORT ---
Subjective Progress Note for:: 07/29/17 Subjective:: Seen and examined continue current regimen. Physical Exam Vital Signs: Temp Pulse Resp BP Pulse Ox 98.8 F 85 16 130/101 H 95 07/29/17 15:29 07/29/17 15:29 07/29/17 15:29 07/29/17 15:29 07/29/17 15:29 Intake & Output 07/28/17 07/29/17 07/30/17 06:59 06:59 06:59 Intake Total 0 480 Output Total 0 Balance 0 480 Weight 46 kg Results Laboratory Results: 07/29/17 05:05 07/29/17 05:05 WBC 4.8 RBC 3.72 Hgb 11.3 L Hct 33.6 L MCV 90 MCH 30.4 MCHC 33.7 RDW 13.0 Plt Count 176 Seg Neutrophils % 65.2 Lymphocytes % 19.5 Monocytes % 10.4 Eosinophils % 3.6 Basophils % 1.3 Absolute Neutrophils 3.2 Absolute Lymphocytes 0.9 Absolute Monocytes 0.5 Absolute Eosinophils 0.2 Absolute Basophils 0.1 Impressions: Knee X-Ray 07/28/17 14:46 IMPRESSION: NO RADIOGRAPHIC EVIDENCE OF ACUTE INJURY. Hip X-Ray 07/28/17 16:26 IMPRESSION: Fractures of the left pubic rami. Assessment & Plan - Diagnosis (1) Cellulitis, leg Is this a current diagnosis for this admission?: Yes (2) Falls Is this a current diagnosis for this admission?: Yes (3) Hypertension Is this a current diagnosis for this admission?: Yes (4) Pelvic fracture Is this a current diagnosis for this admission?: Yes Plan: Stable fracture patient is able to stand and bear weight. (5) Vascular dementia Qualifiers: Dementia behavioral disturbance: without behavioral disturbance Qualified Code(s): F01.50 - Vascular dementia without behavioral disturbance Is this a current diagnosis for this admission?: Yes Plan: Patient is severely demented. Almost little hostile easily agitated but read redirected at this point she will need to be placed patient is not stable to return home at this time alone
[2017-07-30] MEDS: CLINDAMYCIN HCL 150 MG CAPSULE PO SCH ×3 (01:29→17:28)
[2017-07-30] MEDS: HEPARIN SOD (PORCINE) 5,000 UNIT/ML 1 ML SYRINGE SUBCUT SCH ×3 (05:44→21:29)
[2017-07-30] MEDS ORDERED: HYDROCHLOROTHIAZIDE 25 MG TABLET PO SCH (10:00)
[2017-07-30 10:16] LABS: ANION GAP 9 (5-19); BLOOD UREA NITROGEN 17 mg/dL (7-20); CALCIUM 8.6 mg/dL (8.4-10.2); CARBON DIOXIDE 32 mmol/L (22-30); CHLORIDE 97 mmol/L (98-107); CREATININE RESULT 0.85 mg/dL (0.52-1.25); GLUCOSE 116 mg/dL (75-110); POTASSIUM 4.2 mmol/L (3.6-5.0)
[2017-07-30] MEDS: HYDROCHLOROTHIAZIDE 25 MG TABLET PO SCH (10:37)
[2017-07-30] MEDS: ATENOLOL 50 MG TABLET PO SCH (10:37)
[2017-07-30] MEDS: DOCUSATE SODIUM 100 MG CAPSULE PO SCH ×2 (10:38→17:19)
--- NOTE | 2017-07-30 17:00 | PDOC PROGRESS REPORT ---
Subjective Progress Note for:: 07/30/17 Subjective:: Seen and examined continue current regimen. Patient has pretty profound dementia. Do not suspect she is able to make any competent decisions on her iron at this time or in the future. She should get a formal evaluation for dementia however we do not have a neurologist on board at this facility so she would need to be transferred but she should go to acute rehab at this time and consider long-term care placement after that. Physical Exam Vital Signs: Temp Pulse Resp BP Pulse Ox 99.5 F 89 18 112/78 96 07/30/17 15:49 07/30/17 15:49 07/30/17 15:49 07/30/17 15:49 07/30/17 15:49 Intake & Output 07/29/17 07/30/17 07/31/17 06:59 06:59 06:59 Intake Total 0 960 Output Total 0 400 Balance 0 560 Weight 46 kg Results Laboratory Results: 07/29/17 05:05 07/30/17 09:42 07/30/17 09:42 Sodium 138.0 Potassium 4.2 Chloride 97 L Carbon Dioxide 32 H Anion Gap 9 BUN 17 Creatinine 0.85 Est GFR ( Amer) > 60 Est GFR (Non-Af Amer) > 60 Glucose 116 H Calcium 8.6 Impressions: Knee X-Ray 07/28/17 14:46 IMPRESSION: NO RADIOGRAPHIC EVIDENCE OF ACUTE INJURY. Hip X-Ray 07/28/17 16:26 IMPRESSION: Fractures of the left pubic rami. Assessment & Plan - Diagnosis (1) Cellulitis, leg Is this a current diagnosis for this admission?: Yes Plan: Patient is currently on clindamycin p.o. bilateral lower extremity swelling and edema and cellulitis is has improved. Continue antibiotics for now. Consider discharge to rehab for therapy (2) Falls Qualifiers: Encounter type: subsequent encounter Qualified Code(s): W19.XXXD - Unspecified fall, subsequent encounter Is this a current diagnosis for this admission?: Yes Plan: Patient should not be left alone and should not live alone for any significant period of time. She should have someone with her as she is required a sitter here 24 hours a day 7 days a week. We will be able to send her to group home facility for rehab and assisting with ambulation secondary to an acute pelvic fracture from a recent fall weightbearing as tolerated (3) Hypertension Is this a current diagnosis for this admission?: Yes (4) Pelvic fracture Qualifiers: Encounter type: initial encounter Pelvic bone location: unspecified part of pelvis Fracture type: closed Fracture alignment: nondisplaced Qualified Code(s): S32.9XXA - Fracture of unspecified parts of lumbosacral spine and pelvis, initial encounter for closed fracture Is this a current diagnosis for this admission?: Yes Plan: Stable fracture patient is able to stand and bear weight. Will need acute rehab for ambulation transferring safely and ambulating. At this time we do not feel patient capable or able to make her own decision and were going home we should that should be determined by her healthcare power of employee benefits attorney who is her brother (5) Vascular dementia Qualifiers: Dementia behavioral disturbance: without behavioral disturbance Qualified Code(s): F01.50 - Vascular dementia without behavioral disturbance Is this a current diagnosis for this admission?: Yes
[2017-07-31] MEDS: CLINDAMYCIN HCL 150 MG CAPSULE PO SCH ×3 (01:32→17:14)
[2017-07-31] MEDS: HEPARIN SOD (PORCINE) 5,000 UNIT/ML 1 ML SYRINGE SUBCUT SCH ×3 (05:13→21:28)
[2017-07-31] MEDS: HYDROCHLOROTHIAZIDE 25 MG TABLET PO SCH (11:28)
[2017-07-31] MEDS: ATENOLOL 50 MG TABLET PO SCH (11:29)
[2017-07-31] MEDS: DOCUSATE SODIUM 100 MG CAPSULE PO SCH ×2 (11:29→17:10)
--- NOTE | 2017-07-31 17:45 | PDOC PROGRESS REPORT ---
Subjective Progress Note for:: 07/31/17 Subjective:: Seen and examined continue current regimen. Patient has pretty profound dementia. Do not suspect she is able to make any competent decisions on her iron at this time or in the future. She should get a formal evaluation for dementia however we do not have a neurologist on board at this facility so she would need to be transferred but she should go to acute rehab at this time and consider long-term care placement after that. Physical Exam Vital Signs: Temp Pulse Resp BP Pulse Ox 98.7 F 81 13 145/81 H 98 07/31/17 15:46 07/31/17 15:46 07/31/17 15:46 07/31/17 15:46 07/31/17 15:46 Intake & Output 07/30/17 07/31/17 08/01/17 06:59 06:59 06:59 Intake Total 960 290 Output Total 400 Balance 560 290 General appearance: PRESENT: no acute distress, well-developed, well-nourished Head exam: PRESENT: atraumatic, normocephalic Eye exam: PRESENT: conjunctiva pink, EOMI, PERRLA. ABSENT: scleral icterus Ear exam: PRESENT: normal external ear exam Mouth exam: PRESENT: moist, tongue midline Neck exam: ABSENT: carotid bruit, JVD, lymphadenopathy, thyromegaly Respiratory exam: PRESENT: clear to auscultation diana. ABSENT: rales, rhonchi, wheezes Cardiovascular exam: PRESENT: RRR. ABSENT: diastolic murmur, rubs, systolic murmur Pulses: PRESENT: normal dorsalis pedis pul Vascular exam: PRESENT: normal capillary refill GI/Abdominal exam: PRESENT: normal bowel sounds, soft. ABSENT: distended, guarding, mass, organolmegaly, rebound, tenderness Rectal exam: PRESENT: deferred Extremities exam: PRESENT: full ROM. ABSENT: calf tenderness, clubbing, pedal edema Neurological exam: PRESENT: alert, awake, oriented to person, oriented to place , oriented to time, oriented to situation, CN II-XII grossly intact. ABSENT: motor sensory deficit Psychiatric exam: PRESENT: appropriate affect, normal mood. ABSENT: homicidal ideation, suicidal ideation Skin exam: PRESENT: dry, intact, warm. ABSENT: cyanosis, rash Results Laboratory Results: 07/29/17 05:05 07/30/17 09:42 07/29/17 07:45 Clean Catch Midstream Urine Culture - Final Citrobacter Freundii Klebsiella Oxytoca Impressions: Knee X-Ray 07/28/17 14:46 IMPRESSION: NO RADIOGRAPHIC EVIDENCE OF ACUTE INJURY. Hip X-Ray 07/28/17 16:26 IMPRESSION: Fractures of the left pubic rami. Assessment & Plan - Diagnosis (1) Cellulitis, leg Qualifiers: Laterality: unspecified laterality Qualified Code(s): L03.119 - Cellulitis of unspecified part of limb Is this a current diagnosis for this admission?: Yes Plan: Patient is currently on clindamycin p.o. bilateral lower extremity swelling and edema and cellulitis is has improved. Continue antibiotics for now. Consider discharge to rehab for therapy (2) Falls Qualifiers: Encounter type: subsequent encounter Qualified Code(s): W19.XXXD - Unspecified fall, subsequent encounter Is this a current diagnosis for this admission?: Yes Plan: Patient should not be left alone and should not live alone for any significant period of time. She should have someone with her as she is required a sitter here 24 hours a day 7 days a week. We will be able to send her to [facility] facility for rehab and assisting with ambulation secondary to an acute pelvic fracture from a recent fall weightbearing as tolerated (3) Hypertension Is this a current diagnosis for this admission?: Yes (4) Pelvic fracture Qualifiers: Encounter type: initial encounter Pelvic bone location: unspecified part of pelvis Fracture type: closed Fracture alignment: nondisplaced Qualified Code(s): S32.9XXA - Fracture of unspecified parts of lumbosacral spine and pelvis, initial encounter for closed fracture Is this a current diagnosis for this admission?: Yes Plan: Stable fracture patient is able to stand and bear weight. Will need acute rehab for ambulation transferring safely and ambulating. At this time we do not feel patient capable or able to make her own decision and were going home we should that should be determined by her healthcare power of title attorney who is her brother. She will benefit from skilled therapy rehab then re-evaluated reassess for in need of skilled facility or assisted living level of care (5) Vascular dementia Qualifiers: Dementia behavioral disturbance: without behavioral disturbance Qualified Code(s): F01.50 - Vascular dementia without behavioral disturbance Is this a current diagnosis for this admission?: Yes Plan: Patient is severely demented. Almost little hostile easily agitated but easily redirected at this point she will need to be placed patient is not stable to return home at this time alone. She will need [facility] care at this time for rehabilitation due to her inability to ambulate secondary to her pelvic fracture I met with her healthcare power of title attorney who is her brother today who is very realistic and getting the type of care that she needs.
[2017-08-01] MEDS: HEPARIN SOD (PORCINE) 5,000 UNIT/ML 1 ML SYRINGE SUBCUT SCH ×3 (05:14→21:52)
[2017-08-01] MEDS: HYDROCHLOROTHIAZIDE 25 MG TABLET PO SCH (09:27)
[2017-08-01] MEDS: DOCUSATE SODIUM 100 MG CAPSULE PO SCH ×2 (09:27→19:28)
[2017-08-01] MEDS: ATENOLOL 50 MG TABLET PO SCH (09:27)
[2017-08-01] MEDS ORDERED: LEVOFLOXACIN 500 MG/D5W RTU 500 MG/100 ML RTUPB IV ONE (14:00)
--- NOTE | 2017-08-01 17:28 | PDOC PROGRESS REPORT ---
Subjective Progress Note for:: 08/01/17 Subjective:: Seen and examined continue current regimen. Patient has pretty profound dementia. Do not suspect she is able to make any competent decisions on her iron at this time or in the future. She should get a formal evaluation for dementia however we do not have a neurologist on board at this facility so she would need to be transferred but she should go to acute rehab at this time and consider long-term care placement after that. Talk with the family regarding patient will need penitentiary facility for now but I have recommended placement for her in which her power of sports attorney has agreed. This patient in my opinion is not safe to be home without supervise care 24 hours a day. Physical Exam Vital Signs: Temp Pulse Resp BP Pulse Ox 97.9 F 84 18 136/74 H 96 07/31/17 20:00 07/31/17 20:00 07/31/17 20:00 07/31/17 20:00 07/31/17 20:00 Intake & Output 07/31/17 08/01/17 08/02/17 06:59 06:59 06:59 Intake Total 290 1250 Balance 290 1250 General appearance: PRESENT: no acute distress, well-developed, well-nourished Head exam: PRESENT: atraumatic, normocephalic Eye exam: PRESENT: conjunctiva pink, EOMI, PERRLA. ABSENT: scleral icterus Ear exam: PRESENT: normal external ear exam Mouth exam: PRESENT: moist, tongue midline Neck exam: ABSENT: carotid bruit, JVD, lymphadenopathy, thyromegaly Respiratory exam: PRESENT: clear to auscultation diana. ABSENT: rales, rhonchi, wheezes Cardiovascular exam: PRESENT: RRR. ABSENT: diastolic murmur, rubs, systolic murmur Pulses: PRESENT: normal dorsalis pedis pul Vascular exam: PRESENT: normal capillary refill GI/Abdominal exam: PRESENT: normal bowel sounds, soft. ABSENT: distended, guarding, mass, organolmegaly, rebound, tenderness Rectal exam: PRESENT: deferred Extremities exam: PRESENT: full ROM. ABSENT: calf tenderness, clubbing, pedal edema Neurological exam: PRESENT: alert, awake, oriented to person, oriented to place , oriented to time, oriented to situation, CN II-XII grossly intact. ABSENT: motor sensory deficit Psychiatric exam: PRESENT: appropriate affect, normal mood. ABSENT: homicidal ideation, suicidal ideation Skin exam: PRESENT: dry, intact, warm. ABSENT: cyanosis, rash Results Laboratory Results: 07/29/17 05:05 07/30/17 09:42 Impressions: Knee X-Ray 07/28/17 14:46 IMPRESSION: NO RADIOGRAPHIC EVIDENCE OF ACUTE INJURY. Hip X-Ray 07/28/17 16:26 IMPRESSION: Fractures of the left pubic rami. Assessment & Plan - Diagnosis (1) Vascular dementia Qualifiers: Dementia behavioral disturbance: without behavioral disturbance Qualified Code(s): F01.50 - Vascular dementia without behavioral disturbance Is this a current diagnosis for this admission?: Yes Plan: Patient is severely demented. Almost little hostile easily agitated but easily redirected at this point she will need to be placed patient is not stable to return home at this time alone. She will need penitentiary care at this time for rehabilitation due to her inability to ambulate secondary to her pelvic fracture I met with her healthcare power of sports attorney who is her brother today who is very realistic and getting the type of care that she needs. (2) Cellulitis, leg Qualifiers: Laterality: unspecified laterality Qualified Code(s): L03.119 - Cellulitis of unspecified part of limb Is this a current diagnosis for this admission?: Yes Plan: Patient is currently on clindamycin p.o. bilateral lower extremity swelling and edema and cellulitis is has improved. Continue antibiotics for now. Consider discharge to rehab for therapy I have changed her antibiotic to Levaquin IV. The patient may have a UTI and she had positive blood culture sensitive to Levaquin I will have given IV because she is really refusing p.o. at this time due to her dementia (3) Falls Qualifiers: Encounter type: subsequent encounter Qualified Code(s): W19.XXXD - Unspecified fall, subsequent encounter Is this a current diagnosis for this admission?: Yes Plan: Patient should not be left alone and should not live alone for any significant period of time. She should have someone with her as she is required a sitter here 24 hours a day 7 days a week. We will be able to send her to penitentiary facility for rehab and assisting with ambulation secondary to an acute pelvic fracture from a recent fall weightbearing as tolerated (4) Hypertension Is this a current diagnosis for this admission?: Yes (5) Pelvic fracture Qualifiers: Encounter type: initial encounter Pelvic bone location: unspecified part of pelvis Fracture type: closed Fracture alignment: nondisplaced Qualified Code(s): S32.9XXA - Fracture of unspecified parts of lumbosacral spine and pelvis, initial encounter for closed fracture Is this a current diagnosis for this admission?: Yes Plan: Stable fracture patient is able to stand and bear weight. Will need acute rehab for ambulation transferring safely and ambulating. At this time we do not feel patient capable or able to make her own decision and were going home we should that should be determined by her healthcare power of sports attorney who is her brother. She will benefit from skilled therapy rehab then re-evaluated reassess for in need of skilled facility or assisted living level of care Will need outpatient rehab therapy for strengthening - Inpatient Certification Medical Necessity: Failure to Improve With Outpatient Therapy, Need Close Monitoring Due to Risk of Patient Decompensation, Need for Neurological Checks, Need for Pain Control, Need for IV Antibiotics, Risk of Complication if Not Cared For in Hospital Post Hospital Care: D/C Clothes Ironer Documentation
[2017-08-02] MEDS: HEPARIN SOD (PORCINE) 5,000 UNIT/ML 1 ML SYRINGE SUBCUT SCH ×2 (05:12→13:08)
[2017-08-02] MEDS: HYDROCHLOROTHIAZIDE 25 MG TABLET PO SCH (10:09)
[2017-08-02] MEDS: LEVOFLOXACIN 500 MG/D5W RTU 500 MG/100 ML RTUPB IV SCH (10:10)
[2017-08-02] MEDS: DOCUSATE SODIUM 100 MG CAPSULE PO SCH ×2 (10:10→18:09)
[2017-08-02] MEDS: ATENOLOL 50 MG TABLET PO SCH (10:10)
[2017-08-02] MEDS ORDERED: HALOPERIDOL LACTATE INJ 5 MG/1 ML VIAL ONE (16:00)
--- NOTE | 2017-08-02 16:22 | PDOC PROGRESS REPORT ---
Subjective Progress Note for:: 08/02/17 Subjective:: Seen and examined continue current regimen. Patient has pretty profound dementia. Do not suspect she is able to make any competent decisions on her iron at this time or in the future. She should get a formal evaluation for dementia however we do not have a neurologist on board at this facility so she would need to be transferred but she should go to acute rehab at this time and consider long-term care placement after that. Talk with the family regarding patient will need fpc facility for now but I have recommended placement for her in which her power of finance attorney has agreed. This patient in my opinion is not safe to be home without supervise care 24 hours a day. Physical Exam Vital Signs: Temp Pulse Resp BP Pulse Ox 98.3 F 83 16 125/72 99 08/02/17 12:31 08/02/17 12:31 08/02/17 12:31 08/02/17 12:31 08/02/17 12:31 Intake & Output 08/01/17 08/02/17 08/03/17 06:59 06:59 05:59 Intake Total 1250 100 Balance 1250 100 General appearance: PRESENT: disheveled, severe distress, well-developed, well- nourished. ABSENT: cooperative Head exam: PRESENT: atraumatic, normocephalic Eye exam: PRESENT: conjunctiva pink, EOMI, PERRLA. ABSENT: scleral icterus Ear exam: PRESENT: normal external ear exam Mouth exam: PRESENT: moist, tongue midline Neck exam: ABSENT: carotid bruit, JVD, lymphadenopathy, thyromegaly Respiratory exam: PRESENT: clear to auscultation diana. ABSENT: rales, rhonchi, wheezes Cardiovascular exam: PRESENT: RRR. ABSENT: diastolic murmur, rubs, systolic murmur Pulses: PRESENT: normal dorsalis pedis pul Vascular exam: PRESENT: normal capillary refill GI/Abdominal exam: PRESENT: normal bowel sounds, soft. ABSENT: distended, guarding, mass, organolmegaly, rebound, tenderness Rectal exam: PRESENT: deferred Extremities exam: PRESENT: pedal edema, +1 edema. ABSENT: calf tenderness, clubbing, full ROM Musculoskeletal exam: ABSENT: full ROM Neurological exam: PRESENT: alert, awake, oriented to person, oriented to place , CN II-XII grossly intact. ABSENT: oriented to time, oriented to situation, motor sensory deficit Psychiatric exam: PRESENT: agitated, normal mood. ABSENT: appropriate affect, homicidal ideation, suicidal ideation Focused psych exam: PRESENT: delusional, psychomotor agitation, restlessness Skin exam: PRESENT: dry, intact, warm. ABSENT: cyanosis, rash Results Laboratory Results: 07/29/17 05:05 07/30/17 09:42 Impressions: Knee X-Ray 07/28/17 14:46 IMPRESSION: NO RADIOGRAPHIC EVIDENCE OF ACUTE INJURY. Hip X-Ray 07/28/17 16:26 IMPRESSION: Fractures of the left pubic rami. Assessment & Plan - Diagnosis (1) Vascular dementia Qualifiers: Dementia behavioral disturbance: without behavioral disturbance Qualified Code(s): F01.50 - Vascular dementia without behavioral disturbance Is this a current diagnosis for this admission?: Yes Plan: Patient is severely demented. Almost little hostile easily agitated but easily redirected at this point she will need to be placed patient is not stable to return home at this time alone. She will need fpc care at this time for rehabilitation due to her inability to ambulate secondary to her pelvic fracture I met with her healthcare power of finance attorney who is her brother GM today who is very realistic and getting the type of care that she needs. Very agiatated and restless. Staff reports patient got very upset when family came and went and take her home. She started yelling is trying to get up out of the chair unable to ambulate by herself. Agitated so I gave her a 1 mg IM Haldol. (2) Cellulitis, leg Qualifiers: Laterality: unspecified laterality Qualified Code(s): L03.119 - Cellulitis of unspecified part of limb Is this a current diagnosis for this admission?: Yes Plan: Patient is currently on clindamycin p.o. bilateral lower extremity swelling and edema and cellulitis is has improved. Continue antibiotics for now. Consider discharge to rehab for therapy I have changed her antibiotic to Levaquin IV. The patient may have a UTI and she had positive blood culture sensitive to Levaquin I will have given IV because she is really refusing p.o. at this time due to her dementia Patient unable to ambulate but she wants to go home (3) Falls Qualifiers: Encounter type: subsequent encounter Qualified Code(s): W19.XXXD - Unspecified fall, subsequent encounter Is this a current diagnosis for this admission?: Yes (4) Hypertension Is this a current diagnosis for this admission?: Yes (5) Pelvic fracture Qualifiers: Encounter type: initial encounter Pelvic bone location: unspecified part of pelvis Fracture type: closed Fracture alignment: nondisplaced Qualified Code(s): S32.9XXA - Fracture of unspecified parts of lumbosacral spine and pelvis, initial encounter for closed fracture Is this a current diagnosis for this admission?: Yes Plan: Stable fracture patient is able to stand and bear weight. Will need acute rehab for ambulation transferring safely and ambulating. At this time we do not feel patient capable or able to make her own decision and were going home we should that should be determined by her healthcare power of finance attorney who is her brother. She will benefit from skilled therapy rehab then re-evaluated reassess for in need of skilled facility or assisted living level of care Will need outpatient rehab therapy for strengthening
[2017-08-02] MEDS ORDERED: HALOPERIDOL LACTATE INJ 5 MG/1 ML VIAL IM ONE (17:00)
[2017-08-03] MEDS: HEPARIN SOD (PORCINE) 5,000 UNIT/ML 1 ML SYRINGE SUBCUT SCH ×4 (00:29→22:03)
[2017-08-03] MEDS: HYDROCHLOROTHIAZIDE 25 MG TABLET PO SCH (11:40)
[2017-08-03] MEDS: LEVOFLOXACIN 500 MG/D5W RTU 500 MG/100 ML RTUPB IV SCH (11:42)
[2017-08-03] MEDS: ATENOLOL 50 MG TABLET PO SCH (11:42)
[2017-08-03] MEDS: DOCUSATE SODIUM 100 MG CAPSULE PO SCH ×2 (11:42→17:06)
--- NOTE | 2017-08-03 15:06 | PDOC PROGRESS REPORT ---
Subjective Progress Note for:: 08/03/17 Subjective:: Seen and examined continue current regimen. Patient has pretty profound dementia. Do not suspect she is able to make any competent decisions on her on at this time or in the future. She should get a formal evaluation for dementia however we do not have a neurologist on board at this facility so she would need to be transferred but she should go to acute rehab at this time and consider long-term care placement. Talk with the family regarding patient will need long-term facility for now but I have recommended placement for her in which her power of supervisor product inspection has agreed. This patient in my opinion is not safe to be home without supervise care 24 hours a day. Patient had more agitation recently probably a little more . I have added Seroquel at bedtime for agitation Physical Exam Vital Signs: Temp Pulse Resp BP Pulse Ox 98.7 F 89 16 130/70 H 96 08/03/17 11:25 08/03/17 11:25 08/03/17 11:25 08/03/17 11:25 08/03/17 11:25 Intake & Output 08/02/17 08/03/17 08/04/17 07:59 06:59 06:59 Intake Total 160 Output Total Balance 160 Weight General appearance: PRESENT: no acute distress, well-developed, well-nourished Head exam: PRESENT: atraumatic, normocephalic Eye exam: PRESENT: conjunctiva pink, EOMI, PERRLA. ABSENT: scleral icterus Ear exam: PRESENT: normal external ear exam Mouth exam: PRESENT: moist, tongue midline Neck exam: ABSENT: carotid bruit, JVD, lymphadenopathy, thyromegaly Respiratory exam: PRESENT: clear to auscultation diana. ABSENT: rales, rhonchi, wheezes Cardiovascular exam: PRESENT: RRR. ABSENT: diastolic murmur, rubs, systolic murmur Pulses: PRESENT: normal dorsalis pedis pul Vascular exam: PRESENT: normal capillary refill GI/Abdominal exam: PRESENT: normal bowel sounds, soft. ABSENT: distended, guarding, mass, organolmegaly, rebound, tenderness Rectal exam: PRESENT: deferred Extremities exam: PRESENT: full ROM. ABSENT: calf tenderness, clubbing, pedal edema Neurological exam: PRESENT: alert, awake, oriented to person, CN II-XII grossly intact. ABSENT: oriented to place, oriented to time, oriented to situation, motor sensory deficit Psychiatric exam: PRESENT: appropriate affect, normal mood. ABSENT: homicidal ideation, suicidal ideation Focused psych exam: PRESENT: delusional. ABSENT: psychomotor agitation Skin exam: PRESENT: dry, intact, warm. ABSENT: cyanosis, rash Results Laboratory Results: 07/29/17 05:05 07/30/17 09:42 Impressions: Knee X-Ray 07/28/17 14:46 IMPRESSION: NO RADIOGRAPHIC EVIDENCE OF ACUTE INJURY. Hip X-Ray 07/28/17 16:26 IMPRESSION: Fractures of the left pubic rami. Assessment & Plan - Diagnosis (1) Vascular dementia Qualifiers: Dementia behavioral disturbance: without behavioral disturbance Qualified Code(s): F01.50 - Vascular dementia without behavioral disturbance Is this a current diagnosis for this admission?: Yes Plan: Patient is severely demented. Almost little hostile easily agitated but easily redirected at this point she will need to be placed patient is not stable to return home at this time alone. She will need long-term care at this time for rehabilitation due to her inability to ambulate secondary to her pelvic fracture I met with her healthcare power of supervisor product inspection who is her brother GM today who is very realistic and getting the type of care that she needs. Very agiatated and [id number] Staff reports patient got very upset when family came and went and take her home. She started yelling is trying to get up out of the chair unable to ambulate by herself. Agitated so I gave her a 1 mg IM Haldol. Today patient seems like a different person. Her brother who is LEXIS Maynard is at bedside. (2) Cellulitis, leg Qualifiers: Laterality: unspecified laterality Qualified Code(s): L03.119 - Cellulitis of unspecified part of limb Is this a current diagnosis for this admission?: Yes Plan: Patient is currently on clindamycin p.o. bilateral lower extremity swelling and edema and cellulitis is has improved. Continue antibiotics for now. Consider discharge to rehab for therapy I have changed her antibiotic to Levaquin IV. The patient may have a UTI and she had positive blood culture sensitive to Levaquin I will have given IV because she is really refusing p.o. at this time due to her dementia Patient unable to ambulate but she wants to go home (3) Falls Qualifiers: Encounter type: subsequent encounter Qualified Code(s): W19.XXXD - Unspecified fall, subsequent encounter Is this a current diagnosis for this admission?: Yes Plan: Patient should not be left alone and should not live alone for any significant period of time. She should have someone with her as she is required a sitter here 24 hours a day 7 days a week. We will be able to send her to long-term facility for rehab and assisting with ambulation secondary to an acute pelvic fracture from a recent fall weightbearing as tolerated (4) Hypertension Is this a current diagnosis for this admission?: Yes (5) Pelvic fracture Qualifiers: Encounter type: initial encounter Pelvic bone location: unspecified part of pelvis Fracture type: closed Fracture alignment: nondisplaced Qualified Code(s): S32.9XXA - Fracture of unspecified parts of lumbosacral spine and pelvis, initial encounter for closed fracture Is this a current diagnosis for this admission?: Yes Plan: Stable fracture patient is able to stand and bear weight. Will need acute rehab for ambulation transferring safely and ambulating. At this time we do not feel patient capable or able to make her own decision and were going home we should that should be determined by her healthcare power of supervisor product inspection who is her brother. She will benefit from skilled therapy rehab then re-evaluated reassess for in need of skilled facility or assisted living level of care Will need outpatient rehab therapy for strengthening
[2017-08-03] MEDS ORDERED: QUETIAPINE FUMARATE 25 MG TABLET PO ONE (16:00)
[2017-08-04] MEDS: QUETIAPINE FUMARATE 25 MG TABLET PO SCH ×2 (04:07→21:45)
[2017-08-04] MEDS: HEPARIN SOD (PORCINE) 5,000 UNIT/ML 1 ML SYRINGE SUBCUT SCH ×3 (05:35→21:46)
[2017-08-04] MEDS: HYDROCHLOROTHIAZIDE 25 MG TABLET PO SCH (09:56)
[2017-08-04] MEDS: DOCUSATE SODIUM 100 MG CAPSULE PO SCH ×2 (09:56→17:59)
[2017-08-04] MEDS: ATENOLOL 50 MG TABLET PO SCH (09:58)
[2017-08-04] MEDS: LEVOFLOXACIN 250 MG TABLET PO SCH (12:33)
--- NOTE | 2017-08-04 17:02 | PDOC PROGRESS REPORT ---
Subjective Progress Note for:: 08/04/17 Subjective:: Seen and examined continue current regimen. Patient has pretty profound dementia. Do not suspect she is able to make any competent decisions on her on at this time or in the future. She should get a formal evaluation for dementia however we do not have a neurologist on board at this facility so she would need to be transferred but she should go to acute rehab at this time and consider long-term care placement. Talk with the family regarding patient will need assisted facility for now but I have recommended placement for her in which her power of admitted attorneys has agreed. This patient in my opinion is not safe to be home without supervise care 24 hours a day. Patient had more agitation recently probably a little more . I have added Seroquel at bedtime for agitation Physical Exam Vital Signs: Temp Pulse Resp BP Pulse Ox 98.1 F 80 16 124/71 99 08/04/17 11:29 08/04/17 11:29 08/04/17 11:29 08/04/17 11:29 08/04/17 11:29 Intake & Output 08/03/17 08/04/17 08/05/17 06:59 06:59 06:59 Intake Total 705 Output Total 1350 Balance -645 Weight 46.6 kg General appearance: PRESENT: no acute distress, well-developed, well-nourished Head exam: PRESENT: atraumatic, normocephalic Eye exam: PRESENT: conjunctiva pink, EOMI, PERRLA. ABSENT: scleral icterus Ear exam: PRESENT: normal external ear exam Mouth exam: PRESENT: moist, tongue midline Neck exam: ABSENT: carotid bruit, JVD, lymphadenopathy, thyromegaly Respiratory exam: PRESENT: clear to auscultation diana. ABSENT: rales, rhonchi, wheezes Cardiovascular exam: PRESENT: RRR. ABSENT: diastolic murmur, rubs, systolic murmur Pulses: PRESENT: normal dorsalis pedis pul Vascular exam: PRESENT: normal capillary refill GI/Abdominal exam: PRESENT: normal bowel sounds, soft. ABSENT: distended, guarding, mass, organolmegaly, rebound, tenderness Rectal exam: PRESENT: deferred Extremities exam: PRESENT: full ROM. ABSENT: calf tenderness, clubbing, pedal edema Neurological exam: PRESENT: alert, awake, oriented to person, oriented to place , oriented to time, oriented to situation, CN II-XII grossly intact. ABSENT: motor sensory deficit Psychiatric exam: PRESENT: appropriate affect, normal mood. ABSENT: homicidal ideation, suicidal ideation Skin exam: PRESENT: dry, intact, warm. ABSENT: cyanosis, rash Results Laboratory Results: 07/29/17 05:05 07/30/17 09:42 08/02/17 13:49 Clean Catch Midstream Urine Culture - Final NO GROWTH 2 DAYS Impressions: Knee X-Ray 07/28/17 14:46 IMPRESSION: NO RADIOGRAPHIC EVIDENCE OF ACUTE INJURY. Hip X-Ray 07/28/17 16:26 IMPRESSION: Fractures of the left pubic rami. Assessment & Plan - Diagnosis (1) Vascular dementia Qualifiers: Dementia behavioral disturbance: without behavioral disturbance Qualified Code(s): F01.50 - Vascular dementia without behavioral disturbance Is this a current diagnosis for this admission?: Yes Plan: Patient is severely demented. Almost little hostile easily agitated but easily redirected at this point she will need to be placed patient is not stable to return home at this time alone. She will need assisted care at this time for rehabilitation due to her inability to ambulate secondary to her pelvic fracture I met with her healthcare power of admitted attorneys who is her brother GM today who is very realistic and getting the type of care that she needs. Very agiatated and [id number]/17 Staff reports patient got very upset when family came and went and take her home. She started yelling is trying to get up out of the chair unable to ambulate by herself. Agitated so I gave her a 1 mg IM Haldol. Today patient seems like a different person. Her brother who is LEXIS Maynard is at bedside. senior living placement for patient. Appears that patient may be discharged to assisted facility tomorrow (2) Cellulitis, leg Qualifiers: Laterality: unspecified laterality Qualified Code(s): L03.119 - Cellulitis of unspecified part of limb Is this a current diagnosis for this admission?: Yes Plan: Patient is currently on clindamycin p.o. bilateral lower extremity swelling and edema and cellulitis is has improved. Continue antibiotics for now. Consider discharge to rehab for therapy I have changed her antibiotic to Levaquin IV. The patient may have a UTI and she had positive blood culture sensitive to Levaquin I will have given IV because she is really refusing p.o. at this time due to her dementia Patient unable to ambulate but she wants to go home (3) Falls Qualifiers: Encounter type: subsequent encounter Qualified Code(s): W19.XXXD - Unspecified fall, subsequent encounter Is this a current diagnosis for this admission?: Yes Plan: Patient should not be left alone and should not live alone for any significant period of time. She should have someone with her as she is required a sitter here 24 hours a day 7 days a week. We will be able to send her to assisted facility for rehab and assisting with ambulation secondary to an acute pelvic fracture from a recent fall weightbearing as tolerated (4) Hypertension Is this a current diagnosis for this admission?: Yes (5) Pelvic fracture Qualifiers: Encounter type: initial encounter Pelvic bone location: unspecified part of pelvis Fracture type: closed Fracture alignment: nondisplaced Qualified Code(s): S32.9XXA - Fracture of unspecified parts of lumbosacral spine and pelvis, initial encounter for closed fracture Is this a current diagnosis for this admission?: Yes Plan: Stable fracture patient is able to stand and bear weight. Will need acute rehab for ambulation transferring safely and ambulating. At this time we do not feel patient capable or able to make her own decision and were going home we should that should be determined by her healthcare power of admitted attorneys who is her brother. She will benefit from skilled therapy rehab then re-evaluated reassess for in need of skilled facility or assisted living level of care Will need outpatient rehab therapy for strengthening Plan to discharge patient to assisted living facility for rehabilitation starting tomorrow.
[2017-08-05] MEDS: HEPARIN SOD (PORCINE) 5,000 UNIT/ML 1 ML SYRINGE SUBCUT SCH ×2 (06:13→14:12)
[2017-08-05] MEDS: HYDROCHLOROTHIAZIDE 25 MG TABLET PO SCH (10:01)
[2017-08-05] MEDS: DOCUSATE SODIUM 100 MG CAPSULE PO SCH (10:01)
[2017-08-05] MEDS: ATENOLOL 50 MG TABLET PO SCH (10:02)
[2017-08-05] MEDS: LEVOFLOXACIN 250 MG TABLET PO SCH (10:02)
[2017-08-05 12:24] VITALS: BP 107/66
--- NOTE | 2017-08-05 12:38 | PDOC DISCHARGE SUMMARY ---
General - Admit/Disc Date/PCP Admission Date/Primary Care Provider: 07/28/17 19:11 Discharge Date: 08/05/17 - Discharge Diagnosis (1) Vascular dementia Is this a current diagnosis for this admission?: Yes Summary: Pt with advanced dementia who is easily agitated by easily redirected. Currently she is receiving Seroquel 25 mg qHS with noted improvements in mood. This a.m. 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 She discusses difficulty with cooking and cleaning and states that she is looking forward to socializing with residents at the SNF. (2) Pelvic fracture Is this a current diagnosis for this admission?: Yes Summary: Pt was admitted with intractable pain secondary to a stable pelvic fracture s/p fall at primary care office with ambulating with a walker. Pain is now controlled with prn tylenol. She is able to bare weight and has worked with physical therapy. She is agreeable for transfer [facility] for continued [facility]. (3) Cellulitis, leg Is this a current diagnosis for this admission?: Yes Summary: Cellulitis to bilateral lower legs has resolved with antibiotics. Pt was initially on p.o. clindamyacin, but due to her advance dementia was frequently refusing/spitting out medications and so required IV abx for a short period of time. Bilateral lower extremity erythema and edema have resolved. (4) Falls Is this a current diagnosis for this admission?: Yes Summary: Pt with advanced dementia and a history of frequent falls at home now with pelvic fracture 2/2 fall. She did participate with physical therapy while inpatient and is agreeable this morning for transfer to SNF for continued rehabilitation. (5) Hypertension Is this a current diagnosis for this admission?: Yes Summary: Mildly elevated; though acceptable given pt's age and fall risk. Home medications were continued throughout admission. - Additional Information Resuscitation Status: Full Code Discharge Diet: As Tolerated Discharge Activity: Activity As Tolerated, Balance Activity w/Rest Home Medications: Bisoprolol/Hydrochlorothiazide [Ziac 2.5-6.25 mg Tablet] 1 tab PO DAILY Docusate Sodium [Colace 100 mg Capsule] 100 mg PO BID capsule 08/05/17 Quetiapine Fumarate [Seroquel 25 mg Tablet] 25 mg PO QHS tablet 08/05/17 History of Present Illness History of Present Illness: Per H&P by Dr. Mendoza: PRAMOD CHRISTOPHER is a 82 year old female with a past medical history of hypertension and dementia who is a very poor historian and is brought to the emergency room after sustaining a fall left hip resulting inability to tolerate weight or ambulate. Patient was at her primary care provider's office Dr. Nielsen when attempting ambulation without front wheeled walker resulting in mechanical fall. She denies prior or subsequent headache, lightheadedness, dizziness, head trauma, loss of consciousness, chest pain or palpitations. In the emergency room she is found to have left-sided pelvic fracture and inability to tolerate weight and subsequently referred to the hospitalist for admission. Physical Exam Vital Signs: Temp Pulse Resp BP Pulse Ox 98.5 F 77 12 107/66 95 08/05/17 12:00 08/05/17 12:00 08/05/17 12:00 08/05/17 12:00 08/05/17 12:00 Intake & Output 08/04/17 08/05/17 08/06/17 06:59 06:59 06:59 Intake Total 705 585 Output Total 1350 500 Balance -645 85 Weight 46.6 kg 44.9 kg General appearance: PRESENT: no acute distress, thin, well-developed Head exam: PRESENT: atraumatic, normocephalic Eye exam: PRESENT: conjunctiva pink, EOMI, PERRLA. ABSENT: scleral icterus Ear exam: PRESENT: normal external ear exam Mouth exam: PRESENT: moist, tongue midline Neck exam: ABSENT: carotid bruit, JVD, lymphadenopathy, thyromegaly Respiratory exam: PRESENT: clear to auscultation diana. ABSENT: rales, rhonchi, wheezes Cardiovascular exam: PRESENT: RRR. ABSENT: diastolic murmur, rubs, systolic murmur Pulses: PRESENT: normal dorsalis pedis pul Vascular exam: PRESENT: normal capillary refill GI/Abdominal exam: PRESENT: normal bowel sounds, soft. ABSENT: distended, guarding, mass, organolmegaly, rebound, tenderness Rectal exam: PRESENT: deferred Extremities exam: ABSENT: calf tenderness, clubbing, full ROM - Limited ambulation/ROM secondary to pain, pedal edema Neurological exam: PRESENT: alert, awake, oriented to person, oriented to place , oriented to situation, CN II-XII grossly intact, other - Slightly confused, reorients easily. ABSENT: oriented to time, motor sensory deficit Psychiatric exam: PRESENT: appropriate affect, normal mood. ABSENT: homicidal ideation, suicidal ideation Skin exam: PRESENT: dry, intact, warm. ABSENT: cyanosis, rash Results Laboratory Results: 07/29/17 05:05 07/30/17 09:42 08/02/17 13:49 Clean Catch Midstream Urine Culture - Final NO GROWTH 2 DAYS Impressions: Knee X-Ray 07/28/17 14:46 IMPRESSION: NO RADIOGRAPHIC EVIDENCE OF ACUTE INJURY. Hip X-Ray 07/28/17 16:26 IMPRESSION: Fractures of the left pubic rami. Qualifiers PATEINT BEING DISCHARGED WITH ANY OF THE FOLLOWING DIAGNOSIS?: No Plan Discharge Plan: Transfer to [facility] for continued physical therapy/ rehabilitation and likely transition to Custodial Care. Time Spent: Less than 30 Minutes
== END 2017-08-05 16:50 | DRG 536 ==
LOC: ER 14:23 → EH 19:11 → OBSVTOIN 19:11 → EH 19:28 → UNDOADMOB 19:28 → 4N 21:28
PROVIDERS: ADMIT Internal Medicine; ATTEND Internal Medicine
DX: S32.592A Other specified fracture of left pubis, initial encounter for closed fracture (principal); L03.115 Cellulitis of right lower limb; L03.116 Cellulitis of left lower limb; S89.92XA Unspecified injury of left lower leg, initial encounter; W01.0XXA Fall on same level from slipping, tripping and stumbling without subsequent striking against object, initial encounter; Y92.531 Health care provider office as the place of occurrence of the external cause; F01.50 Vascular dementia, unspecified severity, without behavioral disturbance, psychotic disturbance, mood disturbance, and anxiety; I10 Essential (primary) hypertension; E55.9 Vitamin D deficiency, unspecified; Z91.81 History of falling; Z79.899 Other long term (current) drug therapy; Z88.6 Allergy status to analgesic agent; Z88.1 Allergy status to other antibiotic agents; Z88.0 Allergy status to penicillin; Z91.19 Patient's noncompliance with other medical treatment and regimen
CPT/HCPCS: 36415; 80048; 80053; 83735; 85025; 87086; 87088; 87186; 99285; J1630; J1885; J1956

== ENCOUNTER 2017-09-14 11:06 | Emergency (ER) | payer MEDICARE ==
[2017-09-14] MEDS ORDERED: ACETAMINOPHEN 325 MG TABLET PO ONE ×2 (11:45→13:05)
[2017-09-14] MEDS ORDERED: CYCLOBENZAPRINE HCL 10 MG TABLET PO ONE (11:45)
--- NOTE | 2017-09-14 11:46 | ER Document Report ---
ED General - General Chief Complaint: Back Pain Stated Complaint: WEAKNESS Time Seen by Provider: 09/14/17 11:14 Notes: Patient is a 82 year old female who presents to the ED complaining of back pain which she is unsure for how long given h/o dementia. Complaining of bilateral side pain that is worse with movement. H/o thoracic compresison fractures of unknown age. Patient is a poor historian. Per EMS, she has has a cough over the past two weeks but been noncompliant with medications at [facility] TRAVEL OUTSIDE OF THE [place] IN LAST 30 DAYS: No - Related Data Allergies/Adverse Reactions: Penicillins Allergy (Mild, Verified 07/06/17 15:11) Hives cephalexin monohydrate [From Keflex] Allergy (Unknown, Verified 07/06/17 15:11) unknown propoxyphene HCl [From Darvon] Allergy (Unknown, Verified 07/06/17 15:11) unknown Past Medical History - Social History Smoking Status: Unknown if Ever Smoked Chew tobacco use (# tins/day): No Frequency of alcohol use: None Drug Abuse: None Family History: Other - Unknown to the patient Patient has suicidal ideation: No Patient has homicidal ideation: No - Past Medical History Cardiac Medical History: Reports: Hx Hypertension Denies: Hx Coronary Artery Disease, Hx Heart Attack Pulmonary Medical History: Denies: Hx Asthma, Hx Bronchitis, Hx COPD, Hx Pneumonia Neurological Medical History: Denies: Hx Cerebrovascular Accident, Hx Seizures Renal/ Medical History: Denies: Hx Peritoneal Dialysis Musculoskeltal Medical History: Denies Hx Arthritis Psychiatric Medical History: Reports: Hx Dementia Denies: Hx Depression Past Surgical History: Denies: Hx Hysterectomy - Immunizations Hx Diphtheria, Pertussis, Tetanus Vaccination: No Review of Systems - Review of Systems -: Yes ROS unobtainable due to patient's medical condition Physical Exam - Vital signs Vitals: Temp Pulse Resp BP Pulse Ox 98.6 F 89 19 165/92 H 95 09/14/17 11:14 09/14/17 11:14 09/14/17 11:14 09/14/17 11:14 09/14/17 11:14 - Notes Notes: PHYSICAL EXAMINATION: GENERAL: Well-appearing, well-nourished and in no acute distress. GCS 15 HEAD: Atraumatic, normocephalic. EYES: Pupils equal round and reactive to light, extraocular movements intact, sclera anicteric, conjunctiva are normal. ENT: Nares patent, oropharynx clear without exudates. Moist mucous membranes. No hemanotympanum . No blood in nares. No dental fracture NECK: Normal range of motion, supple without lymphadenopathy. Trachea midline LUNGS: Chest wall tendner along the lower rib cage without crepitus, flail segment. Breath sounds clear to auscultation bilaterally and equal. No wheezes rales or rhonchi. HEART: Regular rate and rhythm without murmurs. Pulses intact all throughout. ABDOMEN: Soft, nontender, nondistended abdomen. No guarding, no rebound. No masses appreciated. Musculoskeletal: Normal range of motion, no pitting or edema. No cyanosis. Hip non tender, stable. NEUROLOGICAL: Cranial nerves grossly intact. Normal speech, normal gait. Normal sensory, motor exams PSYCH: Normal mood, normal affect. SKIN: Warm, No active bleeding Course - Re-evaluation Re-evalutation: 09/14/17 13:00 patient is an 82-year-old female who presents emergency department with a complaint of bilateral chest wall pain. Chest x-ray does show evidence of nondisplaced fractures on the left at 678 and on the right at 5 and 6. No evidence of respiratory distress, hypoxia. Patient and family at the bedside educated on diagnosis and care they can be completed as an outpatient. Otherwise discussed strict return precautions, stable for discharge home. - Vital Signs Vital signs: Temp Pulse Resp BP Pulse Ox 98.6 F 91 19 127/75 H 95 09/14/17 14:52 09/14/17 14:52 09/14/17 11:14 09/14/17 14:52 09/14/17 14:52 - Diagnostic Test Radiology reviewed: Image reviewed, Reports reviewed Discharge - Discharge Clinical Impression: Ribs, multiple fractures Qualifiers: Encounter type: initial encounter Fracture type: closed Laterality: bilateral Qualified Code(s): S22.43XA - Multiple fractures of ribs, bilateral, initial encounter for closed fracture Condition: Good Disposition: HOME-ASSISTED LIVING Additional Instructions: Rib Injuries and Fractures You have been diagnosed as having either bruised or broken ribs. These two injuries are treated in the same way. It will usually take four to six weeks for these injured ribs to heal. Sometimes, rib belts or anesthetic injections of the chest wall help reduce the pain. If you are using a rib belt, you should cough or take a deep breath at least every hour or two to prevent lung complications. You should not engage in any strenuous physical activity until released by your physician. The usual rule is "if it hurts, don't do it." Rib fractures can lead to serious lung complications including lung collapse, hemorrhage, and pneumonia. You should call the physician or return at once if any of the following occur: (1) Fever or chills. (2) Persistent cough, coughing up blood, or shortness of breath. (3) Increasing pain. (4) Weakness, lightheadedness, or fainting. How to use the incentive spirometer 1.Sit on the edge of your bed if possible, or sit up as far as you can in bed. 2.Hold the incentive spirometer in an upright position. 3.Place the mouthpiece in your mouth and seal your lips tightly around it. 4.Breathe in slowly and as deeply as possible. Notice the yellow piston rising toward the top of the column. The yellow indicator should reach the blue outlined area. 5.Hold your breath as long as possible. Then exhale slowly and allow the piston to fall to the bottom of the column. 6.Rest for a few seconds and repeat steps one to five at least 10 times every hour. 7.Position the yellow indicator on the left side of the spirometer to show your best effort. Use the indicator as a goal to work toward during each slow deep breath. 8.After each set of 10 deep breaths, cough to be sure your lungs are clear. If you have an incision, support your incision when coughing by placing a pillow firmly against it. 9.Once you are able to get out of bed safely, take frequent walks and practice the cough. Prescriptions: Oxycodone HCl/Acetaminophen [Percocet 5-325 mg Tablet] 1 - 2 tab PO Q4H PRN #15 tablet PRN Reason: Referrals: ADAM BILLINGSLEY MD [Primary Care Provider] - Follow up as needed
--- NOTE | 2017-09-14 13:31 | RADIOLOGY REPORT (SQ) ---
EXAM DESCRIPTION: RIBS BILATERAL W/PA CXR COMPLETED DATE/TIME: 09/14/2017 1:08 pm REASON FOR STUDY: back pain, rib pain COMPARISON: CT chest 03/11/2015 TECHNIQUE: Frontal view of the chest and additional views of the right and left ribs acquired. NUMBER OF VIEWS: PA chest, rib detail three views LIMITATIONS: None. FINDINGS: FRONTAL CXR: No pneumothorax. No pleural effusion. No atelectasis or infiltrates. Tortu ous uncoiled thoracic aorta. RIBS: Nondisplaced right lateral 5th and 6th rib fractures are present. Nondisplaced left lower ante rior 6th 7th and 8th rib fractures are present OTHER: No other significant finding. IMPRESSION: Bilateral nondisplaced rib fractures. No pneumothorax or acute infiltrates COMMENT: SITE OF TRAUMA/COMPLAINT MARKED/STAMP COMPLETED: YES. TECHNICAL DOCUMENTATION: JOB ID: [id number] [employer]- All Rights Reserved
[2017-09-14 15:06] VITALS: BP 127/75
== END 2017-09-14 15:06 | disposition home health service (06) ==
LOC: ER 11:06
DX: S22.43XA Multiple fractures of ribs, bilateral, initial encounter for closed fracture (principal); M54.9 Dorsalgia, unspecified; R53.1 Weakness; X58.XXXA Exposure to other specified factors, initial encounter
CPT/HCPCS: 99284; 71111; A9270 ×2

== ENCOUNTER 2017-10-29 13:09 | Emergency (ER) | payer MEDICARE ==
--- NOTE | 2017-10-29 14:09 | RADIOLOGY REPORT (SQ) ---
EXAM DESCRIPTION: CHEST SINGLE VIEW COMPLETED DATE/TIME: 10/29/2017 1:59 pm REASON FOR STUDY: bed 7 db COMPARISON: PA chest and rib detail films 09/14/2017 CT chest 03/11/2015 EXAM PARAMETERS: NUMBER OF VIEWS: One view. TECHNIQUE: Single frontal radiographic view of the chest acquired. RADIATION DOSE: NA LIMITATIONS: None. FINDINGS: LUNGS AND PLEURA: Upper lobes are hyperlucent from obstructive disease. No focal infiltrates. No pleural effusion. No pneumothorax. MEDIASTINUM AND HILAR STRUCTURES: No masses. Contour normal. HEART AND VASCULAR STRUCTURES: Heart normal in size. Normal vasculature. BONES: Osteoporotic, with chronic appearing right lower lateral rib fractures. HARDWARE: None in the chest. OTHER: No other significant finding. IMPRESSION: NO ACUTE RADIOGRAPHIC FINDING IN THE CHEST. TECHNICAL DOCUMENTATION: JOB ID: [id number] [employer]- All Rights Reserved
[2017-10-29 14:56] LABS: ABSOLUTE EOSINOPHILS # (AUTO) 0.1 10^3/uL (0.0-0.6); ABSOLUTE MONOCYTES (AUTO) 0.6 10^3/uL (0.1-1.4); ABSOLUTE NEUT (AUTO) 4.5 10^3/uL (1.7-8.2); BASOPHILS % (AUTO) 0.7 % (0-2); EOSINOPHILS % (AUTO) 1.5 % (0-6); HEMATOCRIT 36.7 % (36.0-47.0); HEMOGLOBIN 12.4 g/dL (12.0-15.5); LYMPHOCYTES % (AUTO) 15.9 % (13-45); MEAN CORPUSCULAR HEMOGLOBIN 30.1 pg (27.0-33.4); MEAN CORPUSCULAR HGB CONC 33.7 g/dL (32.0-36.0); MEAN CORPUSCULAR VOLUME 89 fl (80-97); PLATELET COUNT 316 10^3/uL (150-450); RED BLOOD COUNT 4.11 10^6/uL (3.72-5.28); RED CELL DISTRIBUTION WIDTH 13.7 % (11.5-14.0); SEGMENTED NEUTROPHILS % (AUTO) 71.9 % (42-78); TOTAL CELLS COUNTED % (AUTO) 100 %; WHITE BLOOD COUNT 6.3 10^3/uL (4.0-10.5)
[2017-10-29 16:27] LABS: ALANINE AMINOTRANSFERASE 26 U/L (9-52); ALBUMIN 3.7 g/dL (3.5-5.0); ALKALINE PHOSPHATASE 103 U/L (38-126); ANION GAP 6 (5-19); ASPARTATE AMINO TRANSFERASE 47 U/L (14-36); BILIRUBIN,DIRECT 0.5 mg/dL (0.0-0.4); BILIRUBIN,TOTAL 0.7 mg/dL (0.2-1.3); BLOOD UREA NITROGEN 13 mg/dL (7-20); CALCIUM 9.7 mg/dL (8.4-10.2); CARBON DIOXIDE 36 mmol/L (22-30); CHLORIDE 99 mmol/L (98-107); CREATINE KINASE 46 U/L (30-135); GLUCOSE 115 mg/dL (75-110); POTASSIUM 3.6 mmol/L (3.6-5.0); SODIUM 140.6 mmol/L (137-145); TOTAL PROTEIN 6.4 g/dL (6.3-8.2)
[2017-10-29 16:38] LABS: CREATINE KINASE MB 2.37 ng/mL (<4.55); TROPONIN I 0.013 ng/mL
--- NOTE | 2017-10-29 17:06 | ER Document Report ---
ED General - General Stated Complaint: SHORNTESS OF BREATH Time Seen by Provider: 10/29/17 13:38 Notes: Patient was transferred here from her residence in a local [facility] because they say that she is wheezing and having difficulty breathing. She was transported here by local transport who says that she seemed to be fine when they got to the facility, but they still sent her here to be evaluated. Supposedly, the patient will not take her medications. She also has apparently some degree of dementia as she is slightly confused at times and very argumentative about staying in her room. She is up and walking around the ER without difficulty or assistance. Patient not appear to be having any difficulty breathing. TRAVEL OUTSIDE OF THE [place] IN LAST 30 DAYS: No - Related Data Allergies/Adverse Reactions: Penicillins Allergy (Mild, Verified 07/06/17 15:11) Hives cephalexin monohydrate [From Keflex] Allergy (Unknown, Verified 07/06/17 15:11) unknown propoxyphene HCl [From Darvon] Allergy (Unknown, Verified 07/06/17 15:11) unknown Past Medical History - Social History Smoking Status: Unknown if Ever Smoked Cigarette use (# per day): No Family History: Reviewed & Not Pertinent, Other - Unknown to the patient - Past Medical History Cardiac Medical History: Reports: Hx Hypertension Psychiatric Medical History: Reports: Hx Dementia Denies: Hx Depression Past Surgical History: Denies: Hx Hysterectomy - Immunizations Hx Diphtheria, Pertussis, Tetanus Vaccination: No Review of Systems - Review of Systems Notes: CONSTITUTIONAL : Denies fever. CARDIOVASCULAR: Denies chest pain. RESPIRATORY: Denies cough, chest congestion, or shortness of breath. She says she is not short of breath and not coughing and does not think she should have been brought here. GASTROINTESTINAL: Denies abdominal pain or nausea, vomiting, or diarrhea. GENITOURINARY: Denies difficulty or painful urinating, urinary frequency, blood in urine. Physical Exam - Vital signs Vitals: Temp Pulse Resp BP Pulse Ox 97.5 F 114 H 18 110/60 84 L 10/29/17 14:30 10/29/17 14:30 10/29/17 14:30 10/29/17 14:30 10/29/17 14:30 Interpretation: Normal - Notes Notes: PHYSICAL EXAMINATION: GENERAL: Well-appearing, no acute distress. Dilatory without difficulty. Pulse and blood pressure are normal. HEAD: Atraumatic, normocephalic. NECK: Normal range of motion, supple. LUNGS: Breath sounds clear and equal bilaterally. Wheezes heard. HEART: Regular rate and rhythm without murmurs heard. Heart rate 90 at bedside by me ABDOMEN: Soft, nontender. No guarding or rebound or masses felt. Neuro exam: Patient seems a little confused and I am not sure that she is totally reliable to provide her history. However she is ambulatory in the ED without assistance without any difficulty. Moving all 4 extremities normally. Argumentative about staying in her room. Course - Vital Signs Vital signs: Temp Pulse Resp BP Pulse Ox 97.5 F 114 H 18 110/60 84 L 10/29/17 14:30 10/29/17 14:30 10/29/17 14:30 10/29/17 14:30 10/29/17 14:30 - Laboratory Result Diagrams: 10/29/17 14:21 10/29/17 15:50 Laboratory results interpreted by me: 10/29/17 15:50 Carbon Dioxide 36 H Glucose 115 H Direct Bilirubin 0.5 H AST 47 H - Diagnostic Test Radiology results interpreted by me: 10/29/17 19:46 Chest x-ray shows no acute processes or abnormalities. - EKG Interpretation by In EKG shows normal: Sinus rhythm Rate: Normal Rhythm: NSR Voltage: Consistant with LVH Discharge - Discharge Clinical Impression: Dyspnea Condition: Stable Additional Instructions: Dyspnea, Nonspecific You were evaluated for shortness of breath, or dyspnea. Dyspnea has many causes, and some are more serious than others. Sometimes it's impossible to diagnose the cause of dyspnea with the tests that are available on an emergency basis. Based on our evaluation today, you do not need hospitalization now. We found no evidence of pneumonia, collapsed lung, blood clots in the lung, tumors , or heart failure. Causes of non-specific dyspnea can include asthma or bronchospasm, hyperventilation, emotional distress, heart disease, emphysema, fibrosis of the lung, and stiffness of the chest wall. In healthy individuals with a single episode, it's sometimes reasonable to do nothing but wait to see if the problem occurs again. Additional tests used to evaluate dyspnea can include cardiac stress testing, echocardiography, pulmonary function testing, CAT scan of the chest, bronchoscopy or pulmonary biopsy. Return if shortness of breath persists or worsens, or if you develop chest pain, fever, cough, confusion, or fainting. NORMAL EXAM AND WORKUP: At this time, your examination and workup show no significant abnormality. No significant abnormal physical findings were noted. All laboratory, EKG, and imaging (x-ray, CT scans, ultrasound) studies that were ordered show no significant abnormality. Although your examination and all studies that were ordered showed no significant abnormal finding, there are no examinations and no studies that are 100% accurate. There is always the possibility that some abnormality could exist and not be detected with physical examination or within the limits and capabilities of laboratory and other studies. You should return or follow up as you were instructed on your visit today for further evaluation if your symptoms do not resolve. FOLLOW-UP CARE: If you have been referred to a physician for follow-up care, call the physician s office for an appointment as you were instructed or within the next two days. If you experience worsening or a significant change in your symptoms, notify the physician immediately or return to the Emergency Department at any time for re-evaluation. Referrals: JUAN MARTÍNEZ MD [Primary Care Provider] - Follow up as needed
--- NOTE | 2017-10-29 18:22 | EKG REPORT ---
SEVERITY:- ABNORMAL ECG - SINUS RHYTHM CONSIDER LEFT VENTRICULAR HYPERTROPHY : Confirmed by: Pramod Lee MD 29-Oct-2017 18:22:09
[2017-10-29 20:10] VITALS: BP 147/96
== END 2017-10-29 17:20 | disposition home health service (06) ==
LOC: ER 13:09
DX: R06.00 Dyspnea, unspecified (principal); R06.2 Wheezing; F03.90 Unspecified dementia, unspecified severity, without behavioral disturbance, psychotic disturbance, mood disturbance, and anxiety
CPT/HCPCS: 36415; 71045; 80053; 82550; 82553; 84484; 85025; 93005; 93010; 99285

== ENCOUNTER 2017-10-30 16:29 | Emergency (ER) | payer MEDICARE ==
--- NOTE | 2017-10-30 16:55 | ER Document Report ---
ED General - General Chief Complaint: Abdominal Swelling Stated Complaint: ABDOMINAL PAIN Time Seen by Provider: 10/30/17 16:37 TRAVEL OUTSIDE OF THE [place] IN LAST 30 DAYS: No - HPI Notes: Patient is an 82-year-old female with a history of dementia, hypertension who presents to the ED complaining of increased urination, suprapubic pressure with urination over the last couple days. Patient was sent by the shelter for evaluation of abdominal pain. Patient states that she does not have any abdominal pain currently and has been having a normal appetite. She has been having normal bowel movements as well. Patient states that the suprapubic pressure/discomfort does not radiate and is relieved with urination. She has no other concerns or complaints at this time. Denies any headache, fever, neck pain, URI, sore throat, chest pain, palpitations, syncope, cough, shortness of breath, wheeze, dyspnea, nausea/vomiting/diarrhea, urinary retention, dysuria, hematuria, numbness/tingling, saddle anesthesia, muscle paralysis/weakness, or rash. - Related Data Allergies/Adverse Reactions: Penicillins Allergy (Mild, Verified 07/06/17 15:11) Hives cephalexin monohydrate [From Keflex] Allergy (Unknown, Verified 07/06/17 15:11) unknown propoxyphene HCl [From Darvon] Allergy (Unknown, Verified 07/06/17 15:11) unknown Past Medical History - Social History Smoking Status: Former Smoker Chew tobacco use (# tins/day): No Frequency of alcohol use: None Drug Abuse: None Family History: Reviewed & Not Pertinent, Other - Unknown to the patient Patient has suicidal ideation: No Patient has homicidal ideation: No - Past Medical History Cardiac Medical History: Reports: Hx Hypertension Denies: Hx Coronary Artery Disease, Hx Heart Attack Pulmonary Medical History: Denies: Hx Asthma, Hx Bronchitis, Hx COPD, Hx Pneumonia Neurological Medical History: Denies: Hx Cerebrovascular Accident, Hx Seizures Renal/ Medical History: Denies: Hx Peritoneal Dialysis Musculoskeltal Medical History: Denies Hx Arthritis Psychiatric Medical History: Reports: Hx Dementia Denies: Hx Depression Past Surgical History: Reports: Hx Orthopedic Surgery - hip. Denies: Hx Hysterectomy - Immunizations Hx Diphtheria, Pertussis, Tetanus Vaccination: No Review of Systems - Review of Systems Notes: REVIEW OF SYSTEMS: History taken with grain of salt due to h/o dementia. CONSTITUTIONAL : Denies fever, chills, or sweats. Denies recent illness. EENT: Denies eye, ear, throat, or mouth pain or symptoms. Denies nasal or sinus congestion or discharge. Denies throat, tongue, or mouth swelling or difficulty swallowing. CARDIOVASCULAR: Denies chest pain. Denies palpitations or racing or irregular heart beat. Denies ankle edema. RESPIRATORY: Denies cough, cold, or chest congestion. Denies shortness of breath, difficulty breathing, or wheezing. GASTROINTESTINAL: see hpi. Denies abdominal pain or distention. Denies nausea , vomiting, or diarrhea. Denies blood in vomitus, stools, or per rectum. Denies black, tarry stools. Denies constipation. GENITOURINARY: see hpi. MUSCULOSKELETAL: see hpi (chronic back pain). Denies joint pain or swelling. SKIN: Denies rash, lesions or sores. NEUROLOGICAL: Denies passing out or loss of consciousness. Denies dizziness or lightheadedness. Denies headache. Denies weakness or paralysis or loss of use of either side. Denies problems with gait or speech. Denies sensory loss, numbness, or tingling. Denies seizures. ALL OTHER SYSTEMS REVIEWED AND NEGATIVE. Dictation was performed using [employer] voice recognition software Physical Exam - Notes Notes: PHYSICAL EXAMINATION: GENERAL: Well-appearing, well-nourished and in no acute distress. Alert, Oriented to place/person. LUNGS: Breath sounds clear to auscultation bilaterally and equal. No wheezes rales or rhonchi. HEART: Regular rate and rhythm without murmurs, rubs, gallops. ABDOMEN: Soft, nondistended abdomen. No guarding, no rebound. No masses appreciated. Normal bowel sounds present. No CVA tenderness bilaterally. non- tender. Neg McBurney point, paez, psoas, obturator. No obvious inguinal adenopathy/hernia. Musculoskeletal: LE's b/l: FROM to passive/active. Strength 5+/5. Extremities: No cyanosis, clubbing, or edema b/l. Peripheral pulses 2+. Capillary refill less than 3 seconds. NEUROLOGICAL: Normal speech, normal gait. Normal sensory, motor exams PSYCH: Normal mood, normal affect. SKIN: Warm, Dry, normal turgor, no rashes or lesions noted. Course - Re-evaluation Re-evalutation: 10/30/17 18:36 Patient is an afebrile, well-hydrated, 82-year-old female who presents to the ED with increased urinary frequency. Vitals are stable. PE is otherwise unremarkable. Patient's abdomen was soft and nontender. Patient is tolerating p.o. without any difficulties. Patient was noncompliant with trying to get a urinary catheterization for urinalysis. Patient stood over the toilet and wet her pants when trying to give us a urine sample thereafter. Pt declined wanting any other tests performed with risks/benefits understood at this time. CBC and CMP are unremarkable for any acute pathology. patient's presentation is otherwise nontoxic appearing. I did review with her POA (Caesar Petty-brother ) who states that the shelter has tried to get a urine off of her for the last 3 weeks as well. Reviewed that at this time, w/o a wbc, no cva tenderness , non-tender abdomen, no fever, not tachycardic that she does not have an illness that would warrant an admission at this time and we will discharge her back to her facility. Also discussed that her PCM may consider just treating if he has a high suspicion, but he needs to review case with that provider. Caesar is in agreement with discharge and plan and verbalized understanding of the situation and advised that we not force a cath to be performed. Low suspicion/risk for acute appendicitis, bowel obstruction, acute cholecystitis, acute cholangitis, perforated diverticulitis, incarcerated hernia , pancreatitis, perforated ulcer, peritonitis, sepsis, pelvic inflammatory disease, ectopic , tubo-ovarian abscess, ovarian torsion, or other systemic emergent condition at this time. Patient is aware that her condition can change from initial presentation and she needs to monitor symptoms closely and seek medical attention if any acute changes. We will send her home with a urine specimen cup so she can provide a urine for her provider at her facility. Conservative measures otherwise for symptoms. Recheck with your PCM in 2-3 days. Return to the ED with any worsening/concerning symptoms otherwise as reviewed in discharge. Patient is in agreement. - Laboratory Result Diagrams: 10/30/17 17:10 10/30/17 17:10 Laboratory results interpreted by me: 10/30/17 17:10 Chloride 97 L Carbon Dioxide 32 H Direct Bilirubin 0.5 H AST 45 H Discharge - Discharge Clinical Impression: Urinary frequency Condition: Stable Disposition: HOME, SELF-CARE Additional Instructions: Push fluids (i.e. water, cranberry juice) Proper hygenic technique Keep the skin clean Tylenol/ibuprofen as needed F/u with your PCM in 2-3 days for a recheck Consider consult with a Urologist for ongoing/worsening symptoms. Return to the ED with any worsening symptoms and/or development of fever, headache, chest pain, palpitations, syncope, shortness of breath, trouble breathing, abdominal pain, n/v/d, blood in stool/urine, loss of control of bowel /bladder, urinary retention, or other worsening symptoms that are concerning to you. Referrals: JUAN MARTÍNEZ MD [Primary Care Provider] - 11/01/17
[2017-10-30 17:19] LABS: ABSOLUTE BASOPHILS # (AUTO) 0.1 10^3/uL (0.0-0.2); ABSOLUTE EOSINOPHILS # (AUTO) 0.1 10^3/uL (0.0-0.6); ABSOLUTE LYMPHOCYTES (AUTO) 1.1 10^3/uL (0.5-4.7); ABSOLUTE MONOCYTES (AUTO) 0.6 10^3/uL (0.1-1.4); ABSOLUTE NEUT (AUTO) 4.2 10^3/uL (1.7-8.2); BASOPHILS % (AUTO) 0.9 % (0-2); EOSINOPHILS % (AUTO) 2.1 % (0-6); HEMATOCRIT 36.3 % (36.0-47.0); LYMPHOCYTES % (AUTO) 18.2 % (13-45); MEAN CORPUSCULAR HEMOGLOBIN 29.6 pg (27.0-33.4); MEAN CORPUSCULAR HGB CONC 33.1 g/dL (32.0-36.0); MEAN CORPUSCULAR VOLUME 89 fl (80-97); MONOCYTES % (AUTO) 10.4 % (3-13); PLATELET COUNT 307 10^3/uL (150-450); RED BLOOD COUNT 4.06 10^6/uL (3.72-5.28); RED CELL DISTRIBUTION WIDTH 13.5 % (11.5-14.0); SEGMENTED NEUTROPHILS % (AUTO) 68.4 % (42-78); TOTAL CELLS COUNTED % (AUTO) 100 %; WHITE BLOOD COUNT 6.2 10^3/uL (4.0-10.5)
[2017-10-30 17:36] LABS: ALANINE AMINOTRANSFERASE 27 U/L (9-52); ALBUMIN 3.5 g/dL (3.5-5.0); ALKALINE PHOSPHATASE 94 U/L (38-126); ANION GAP 8 (5-19); ASPARTATE AMINO TRANSFERASE 45 U/L (14-36); BILIRUBIN,DIRECT 0.5 mg/dL (0.0-0.4); BILIRUBIN,TOTAL 0.6 mg/dL (0.2-1.3); BLOOD UREA NITROGEN 14 mg/dL (7-20); CALCIUM 9.2 mg/dL (8.4-10.2); CARBON DIOXIDE 32 mmol/L (22-30); CHLORIDE 97 mmol/L (98-107); GLUCOSE 99 mg/dL (75-110); SODIUM 137.3 mmol/L (137-145); TOTAL PROTEIN 6.4 g/dL (6.3-8.2)
[2017-10-30 22:20] VITALS: BP 138/88
== END 2017-10-30 21:30 | disposition home or self-care (01) ==
LOC: ER 16:29
DX: R35.0 Frequency of micturition (principal); R10.9 Unspecified abdominal pain; I10 Essential (primary) hypertension; Z88.0 Allergy status to penicillin; Z87.891 Personal history of nicotine dependence
CPT/HCPCS: 36415; 80053; 85025; 99285

== ENCOUNTER 2017-11-10 18:55 | Emergency (ER) | payer MEDICARE ==
--- NOTE | 2017-11-10 19:33 | ER Document Report ---
ED General - General Chief Complaint: Edema Stated Complaint: SWOLLEN LEGS Time Seen by Provider: 11/10/17 19:30 Notes: The patient is an 82-year-old female, past medical history mild dementia, hypertension, chronic lower leg wounds, presents with mild swelling around her leg wounds. There is a difficult historian. Denies pain, increased drainage or fevers. TRAVEL OUTSIDE OF THE [place] IN LAST 30 DAYS: No - Related Data Allergies/Adverse Reactions: Penicillins Allergy (Mild, Verified 11/10/17 19:33) Hives cephalexin monohydrate [From Keflex] Allergy (Unknown, Verified 11/10/17 19:33) unknown propoxyphene HCl [From Darvon] Allergy (Unknown, Verified 11/10/17 19:33) unknown Past Medical History - General Information source: Patient - Social History Smoking Status: Unknown if Ever Smoked Family History: Reviewed & Not Pertinent, Other - Unknown to the patient - Past Medical History Cardiac Medical History: Reports: Hx Hypertension Denies: Hx Coronary Artery Disease, Hx Heart Attack Pulmonary Medical History: Denies: Hx Asthma, Hx Bronchitis, Hx COPD, Hx Pneumonia Neurological Medical History: Denies: Hx Cerebrovascular Accident, Hx Seizures Renal/ Medical History: Denies: Hx Peritoneal Dialysis Musculoskeltal Medical History: Denies Hx Arthritis Psychiatric Medical History: Reports: Hx Dementia Denies: Hx Depression Past Surgical History: Reports: Hx Orthopedic Surgery - hip. Denies: Hx Hysterectomy - Immunizations Hx Diphtheria, Pertussis, Tetanus Vaccination: No Review of Systems - Review of Systems Notes: REVIEW OF SYSTEMS: CONSTITUTIONAL: -fevers, -chills EENT: -eye pain, -difficulty swallowing, -nasal congestion CARDIOVASCULAR: -chest pain, -syncope. RESPIRATORY: -cough, -SOB GASTROINTESTINAL: -abdominal pain, -nausea, -vomiting, -diarrhea GENITOURINARY: -dysuria, -hematuria MUSCULOSKELETAL: -back pain, -neck pain SKIN: +leg wounds HEMATOLOGIC: -easy bruising or bleeding. LYMPHATIC: -swollen, enlarged glands. NEUROLOGICAL: -altered mental status or loss of consciousness, -headache, - neurologic symptoms PSYCHIATRIC: -anxiety, -depression. ALL OTHER SYSTEMS REVIEWED AND NEGATIVE. Physical Exam - Notes Notes: PHYSICAL EXAMINATION: GENERAL: Well-appearing, well-nourished and in no acute distress. HEAD: Atraumatic, normocephalic. EYES: Pupils equal round and reactive to light, extraocular movements intact, sclera anicteric, conjunctiva are normal. ENT: nares patent, oropharynx clear without exudates. Moist mucous membranes. NECK: Normal range of motion, supple without lymphadenopathy LUNGS: Breath sounds clear to auscultation bilaterally and equal. No wheezes rales or rhonchi. HEART: Regular rate and rhythm without murmurs ABDOMEN: Soft, nontender, normoactive bowel sounds. No guarding, no rebound. No masses appreciated. EXTREMITIES: Normal range of motion, no pitting or edema. No cyanosis. NEUROLOGICAL: Cranial nerves grossly intact. Normal speech, normal gait. Normal sensory and motor exams. SKIN: 2 small wounds over right anterior dominguez without discharge. Course - Re-evaluation Re-evalutation: Patient's wounds appear to be chronic in nature. No fevers, leukocytosis or increased redness around her legs to suggest cellulitis. Vital signs are normal. Will discharge patient back to the skilled nursing with follow-up at her physicians. - Laboratory Result Diagrams: 11/10/17 20:52 11/10/17 20:52 Laboratory results interpreted by me: 11/10/17 11/10/17 11/10/17 19:35 20:52 20:52 RDW 14.1 H Sodium 136.2 L Carbon Dioxide 31 H Est GFR (Non-Af Amer) 54 L AST 64 H Urine Urobilinogen 2.0 H Ur Leukocyte Esterase MODERATE H Discharge - Discharge Clinical Impression: Leg wound, right Qualifiers: Encounter type: initial encounter Qualified Code(s): S81.801A - Unspecified open wound, right lower leg, initial encounter Condition: Stable Disposition: HOME, SELF-CARE Additional Instructions: There are no signs of worsening infection today. Follow-up with your wound care provider for further evaluation. Referrals: WOUND CARE [Outside] - Follow up as needed
[2017-11-10 20:41] LABS: APPEARANCE,URINE CLEAR; BILIRUBIN,URINE NEGATIVE (NEGATIVE); COLOR,URINE YELLOW; GLUCOSE, URINE NEGATIVE (NEGATIVE); KETONES,URINE NEGATIVE (NEGATIVE); LEUKOCYTE ESTERASE,URINE MODERATE (NEGATIVE); NITRITE,URINE NEGATIVE (NEGATIVE); PROTEIN,URINE NEGATIVE (NEGATIVE); URINE SPECIFIC GRAVITY 1.016
[2017-11-10 21:05] LABS: ABSOLUTE BASOPHILS # (AUTO) 0.1 10^3/uL (0.0-0.2); ABSOLUTE EOSINOPHILS # (AUTO) 0.2 10^3/uL (0.0-0.6); ABSOLUTE LYMPHOCYTES (AUTO) 1.1 10^3/uL (0.5-4.7); ABSOLUTE MONOCYTES (AUTO) 0.7 10^3/uL (0.1-1.4); BASOPHILS % (AUTO) 0.8 % (0-2); EOSINOPHILS % (AUTO) 2.8 % (0-6); HEMATOCRIT 36.7 % (36.0-47.0); HEMOGLOBIN 12.1 g/dL (12.0-15.5); LYMPHOCYTES % (AUTO) 15.9 % (13-45); MEAN CORPUSCULAR HEMOGLOBIN 29.7 pg (27.0-33.4); MEAN CORPUSCULAR HGB CONC 32.8 g/dL (32.0-36.0); MEAN CORPUSCULAR VOLUME 90 fl (80-97); MONOCYTES % (AUTO) 9.6 % (3-13); PLATELET COUNT 263 10^3/uL (150-450); RED BLOOD COUNT 4.06 10^6/uL (3.72-5.28); RED CELL DISTRIBUTION WIDTH 14.1 % (11.5-14.0); SEGMENTED NEUTROPHILS % (AUTO) 70.9 % (42-78); TOTAL CELLS COUNTED % (AUTO) 100 %; WHITE BLOOD COUNT 7.1 10^3/uL (4.0-10.5)
[2017-11-10 21:20] LABS: ALANINE AMINOTRANSFERASE 31 U/L (9-52); ALBUMIN 3.5 g/dL (3.5-5.0); ALKALINE PHOSPHATASE 101 U/L (38-126); ANION GAP 5 (5-19); ASPARTATE AMINO TRANSFERASE 64 U/L (14-36); BILIRUBIN,DIRECT 0.4 mg/dL (0.0-0.4); BILIRUBIN,TOTAL 0.5 mg/dL (0.2-1.3); BLOOD UREA NITROGEN 15 mg/dL (7-20); CALCIUM 9.1 mg/dL (8.4-10.2); CARBON DIOXIDE 31 mmol/L (22-30); CHLORIDE 100 mmol/L (98-107); GLUCOSE 100 mg/dL (75-110); POTASSIUM 4.7 mmol/L (3.6-5.0); SODIUM 136.2 mmol/L (137-145); TOTAL PROTEIN 6.5 g/dL (6.3-8.2)
[2017-11-10 23:26] VITALS: BP 157/98
== END 2017-11-10 23:20 | disposition home or self-care (01) ==
LOC: ER 18:55
DX: S81.801A Unspecified open wound, right lower leg, initial encounter (principal); R60.0 Localized edema; F03.90 Unspecified dementia, unspecified severity, without behavioral disturbance, psychotic disturbance, mood disturbance, and anxiety; I10 Essential (primary) hypertension; M79.89 Other specified soft tissue disorders; X58.XXXA Exposure to other specified factors, initial encounter
CPT/HCPCS: 36415; 80053; 81001; 83880; 85025; 99284

== ENCOUNTER 2017-11-13 11:50 | Emergency (ER) | payer MEDICARE ==
[2017-11-13] MEDS ORDERED: CLINDAMYCIN 600 MG/D5W RTU 600 MG/50 ML RTUPB IV ONE (12:09)
[2017-11-13 13:26] LABS: ABSOLUTE EOSINOPHILS # (AUTO) 0.1 10^3/uL (0.0-0.6); ABSOLUTE MONOCYTES (AUTO) 0.5 10^3/uL (0.1-1.4); ABSOLUTE NEUT (AUTO) 3.9 10^3/uL (1.7-8.2); BASOPHILS % (AUTO) 0.7 % (0-2); EOSINOPHILS % (AUTO) 2.2 % (0-6); HEMATOCRIT 39.3 % (36.0-47.0); HEMOGLOBIN 12.9 g/dL (12.0-15.5); LYMPHOCYTES % (AUTO) 18.2 % (13-45); MEAN CORPUSCULAR HEMOGLOBIN 29.6 pg (27.0-33.4); MEAN CORPUSCULAR HGB CONC 32.9 g/dL (32.0-36.0); MEAN CORPUSCULAR VOLUME 90 fl (80-97); MONOCYTES % (AUTO) 8.3 % (3-13); PLATELET COUNT 282 10^3/uL (150-450); RED BLOOD COUNT 4.36 10^6/uL (3.72-5.28); RED CELL DISTRIBUTION WIDTH 14.5 % (11.5-14.0); SEGMENTED NEUTROPHILS % (AUTO) 70.6 % (42-78); TOTAL CELLS COUNTED % (AUTO) 100 %; WHITE BLOOD COUNT 5.6 10^3/uL (4.0-10.5)
[2017-11-13] MEDS ORDERED: DIPHENHYDRAMINE HCL 50 MG/ML VIAL IV ONE (14:01)
--- NOTE | 2017-11-13 14:01 | ER Document Report ---
ED Extremity Problem, Lower - General Chief Complaint: Leg Swelling Stated Complaint: SWOLLEN LEG Time Seen by Provider: 11/13/17 11:58 Mode of Arrival: Ambulatory Information source: Patient Notes: Patient is an 82[facility]year-[facility] who presents to the ER today for leg ulcers, redness, swelling. Patient appears to have chronic cellulitis and wounds to the right lower extremity. Patient is afebrile here with normal vital signs. She was seen here last week for the same thing. TRAVEL OUTSIDE OF THE [place] IN LAST 30 DAYS: No - Related Data Allergies/Adverse Reactions: Penicillins Allergy (Mild, Verified 11/10/17 19:33) Hives cephalexin monohydrate [From Keflex] Allergy (Unknown, Verified 11/10/17 19:33) unknown propoxyphene HCl [From Darvon] Allergy (Unknown, Verified 11/10/17 19:33) unknown Past Medical History - General Information source: Emergency Med Personnel, Outside Facility Records - Social History Smoking Status: Former Smoker Chew tobacco use (# tins/day): No Frequency of alcohol use: None Drug Abuse: None Family History: Reviewed & Not Pertinent, Other - Unknown to the patient Patient has suicidal ideation: No Patient has homicidal ideation: No - Past Medical History Cardiac Medical History: Reports: Hx Hypertension Denies: Hx Coronary Artery Disease, Hx Heart Attack Pulmonary Medical History: Denies: Hx Asthma, Hx Bronchitis, Hx COPD, Hx Pneumonia Neurological Medical History: Denies: Hx Cerebrovascular Accident, Hx Seizures Renal/ Medical History: Denies: Hx Peritoneal Dialysis Musculoskeltal Medical History: Denies Hx Arthritis Psychiatric Medical History: Reports: Hx Dementia Denies: Hx Depression Past Surgical History: Reports: Hx Orthopedic Surgery - hip. Denies: Hx Hysterectomy - Immunizations Hx Diphtheria, Pertussis, Tetanus Vaccination: No Review of Systems - Review of Systems Constitutional: No symptoms reported EENT: No symptoms reported Cardiovascular: No symptoms reported Respiratory: No symptoms reported Gastrointestinal: No symptoms reported Genitourinary: No symptoms reported Female Genitourinary: No symptoms reported Musculoskeletal: No symptoms reported Skin: See HPI Hematologic/Lymphatic: No symptoms reported Neurological/Psychological: No symptoms reported Physical Exam - Vital signs Vitals: Temp Pulse Resp BP Pulse Ox 97.7 F 97 20 150/93 H 94 11/13/17 11:57 11/13/17 11:57 11/13/17 11:57 11/13/17 11:57 11/13/17 11:57 - Notes Notes: PHYSICAL EXAMINATION: GENERAL: Well-appearing and in no acute distress. HEAD: Atraumatic, normocephalic. EYES: Pupils equal round and reactive to light, extraocular movements intact, sclera anicteric, conjunctiva are normal. NECK: Normal range of motion, supple without lymphadenopathy LUNGS: CTAB and equal. No wheezes rales or rhonchi. HEART: Regular rate and rhythm without murmurs ABDOMEN: Soft, no tenderness. No guarding, no rebound BACK: no vertebral tenderness, normal ROM GI/: no CVA tenderness EXTREMITIES: Normal range of motion, no pitting edema. No cyanosis. NEUROLOGICAL: Cranial nerves grossly intact. Normal sensory/motor exams. PSYCH: Normal mood, normal affect. SKIN: Warm, Dry, normal turgor, erythema to right anterior lower extremity, chronic appearing leg ulcers, tender to palpation, edema Course - Re-evaluation Re-evalutation: 11/19/17 15:36 Lab work unremarkable today with a normal white blood cell count. Patient will be started on clindamycin as I did a review of the chart where she was seen last week and it did not note any erythema. Patient is afebrile here with normal vital signs. 11/19/17 15:36 - Vital Signs Vital signs: Temp Pulse Resp BP Pulse Ox 98.5 F 96 18 153/86 H 97 11/13/17 19:40 11/13/17 19:40 11/13/17 19:40 11/13/17 19:40 11/13/17 19:40 - Laboratory Result Diagrams: 11/13/17 12:30 Laboratory results interpreted by me: 11/13/17 12:30 RDW 14.5 H Discharge - Discharge Clinical Impression: Leg wound, right Qualifiers: Encounter type: initial encounter Qualified Code(s): S81.801A - Unspecified open wound, right lower leg, initial encounter Cellulitis, leg Qualifiers: Laterality: right Qualified Code(s): L03.115 - Cellulitis of right lower limb Condition: Stable Disposition: HOME-SNF (ED ONLY) Additional Instructions: We were unable to obtain a urinalysis here, please continue to attempt to obtain urinalysis at the facility to test for urinary tract infection. Return immediately for any new or worsening symptoms. Follow up with primary care provider, call tomorrow to make followup appointment. Please bandaged her right lower leg with Silvadene cream and wet to dry dressings Daily until another physician has taken a look at the leg. Prescriptions: Clindamycin HCl 300 mg PO TID #30 capsule
[2017-11-13] MEDS ORDERED: SILVER SULFADIAZINE 1% CREAM 400 GM TP ONE (15:56)
[2017-11-13 19:42] VITALS: BP 153/86
== END 2017-11-13 20:45 ==
LOC: ER 11:50
DX: L97.919 Non-pressure chronic ulcer of unspecified part of right lower leg with unspecified severity (principal); L03.115 Cellulitis of right lower limb; I10 Essential (primary) hypertension; Z88.0 Allergy status to penicillin; Z88.1 Allergy status to other antibiotic agents; Z88.5 Allergy status to narcotic agent; Z87.891 Personal history of nicotine dependence
CPT/HCPCS: 99285; 96375; 96365; 36415; 85025; J1200; J3490

== ENCOUNTER 2018-03-09 21:44 | Emergency (ER) | payer MEDICARE ==
--- NOTE | 2018-03-09 22:33 | ER Document Report ---
ED General - General Stated Complaint: FALL Time Seen by Provider: 03/09/18 22:28 Notes: Patient is a pleasant 83-year-old female was sent here from a detention because she slipped out of her wheelchair. Apparently she initially complained of hip pain but now she denies any pain. She does have history of dementia. On my exam she denies any pain anywhere and says she feels well. No other complaints at this time. TRAVEL OUTSIDE OF THE [place] IN LAST 30 DAYS: No - Related Data Allergies/Adverse Reactions: Penicillins Allergy (Mild, Verified 11/10/17 19:33) Hives cephalexin monohydrate [From Keflex] Allergy (Unknown, Verified 11/10/17 19:33) unknown propoxyphene HCl [From Darvon] Allergy (Unknown, Verified 11/10/17 19:33) unknown Past Medical History - Social History Smoking Status: Never Smoker Frequency of alcohol use: None Drug Abuse: None Family History: Reviewed & Not Pertinent, Other - Unknown to the patient - Past Medical History Cardiac Medical History: Reports: Hx Hypertension Denies: Hx Coronary Artery Disease, Hx Heart Attack Pulmonary Medical History: Denies: Hx Asthma, Hx Bronchitis, Hx COPD, Hx Pneumonia Neurological Medical History: Denies: Hx Cerebrovascular Accident, Hx Seizures Renal/ Medical History: Denies: Hx Peritoneal Dialysis Musculoskeltal Medical History: Denies Hx Arthritis Psychiatric Medical History: Reports: Hx Dementia Denies: Hx Depression Past Surgical History: Reports: Hx Orthopedic Surgery - hip. Denies: Hx Hysterectomy - Immunizations Hx Diphtheria, Pertussis, Tetanus Vaccination: No Review of Systems - Review of Systems Notes: My Normal Review Basic REVIEW OF SYSTEMS: CONSTITUTIONAL : Denies fever, chills, or sweats. Denies recent illness. CARDIOVASCULAR: Denies chest pain. RESPIRATORY: Denies cough, cold, or chest congestion. Denies shortness of breath, difficulty breathing, or wheezing. GASTROINTESTINAL: Denies abdominal pain. Denies nausea, vomiting, or diarrhea. GENITOURINARY: Denies difficulty urinating, painful urination, burning, frequency. MUSCULOSKELETAL: Denies neck or back pain or joint pain or swelling. SKIN: Denies rash or skin lesions. NEUROLOGICAL: Denies altered mental status or loss of consciousness. Denies headache. Denies weakness or paralysis or loss of use of either side. ALL OTHER SYSTEMS REVIEWED AND NEGATIVE. Physical Exam - Vital signs Vitals: Temp Pulse Resp BP Pulse Ox 97.5 F 88 16 142/79 H 93 03/09/18 21:54 03/09/18 21:54 03/09/18 21:54 03/09/18 21:54 03/09/18 21:54 - Notes Notes: General Appearance: Well nourished, alert, cooperative, no acute distress, no obvious discomfort. Well appearing. Vitals: reviewed, See vital signs table. Head: no swelling or tenderness to the head Eyes: PERRL, EOMI, Conjuctiva clear Mouth: No decreasd moisture Throat: No tonsillar inflammation, No airway obstruction, No lymphadenopathy Neck: Supple, no neck tenderness, No step-offs or deformities. Lungs: No wheezing, No rales, No rhonci, No accessory muscle use, good air exchange bilaterally. Heart: Normal rate, Regular rythm, No murmur, no rub Abdomen: Normal BS, soft, No rigidity, No abdominal tenderness, No guarding, no rebound, no abdominal masses, no organomegaly Back: No tenderness to palpation of thoracic or lumbar spine. No step-offs or deformities. Extremities: strength 5/5 in all extremities, good pulses in all extremities, no swelling or tenderness in the extremities, no edema. Has full range of motion of her hips without any pain. She is able to lift both legs off the bed against gravity without any difficulty. Skin: warm, dry, appropriate color, no rash Neuro: speech clear, oriented x 2, normal affect, responds appropriately to questions. Cranial nerves II through XII are intact. Equal strength in all 4 extremities. Distal sensation intact. Course - Re-evaluation Re-evalutation: 03/10/18 05:32 Patient is very well-appearing. She has no reproducible pain palpation of any of her extremities on exam. She has no pain to palpation of her spine. Sternum is without any difficulty or pain. She has no bruising or swelling to the head. I do not see any need for x-ray or CT scan at this time. I feel she is safe to be discharged home. She is to return to ER if she has severe headache, vomiting, or any pain, or if she feels unwell. Patient agrees with plan will be discharged home. Dictation of this chart was performed using voice recognition software; therefore, there may be some unintended grammatical errors. - Vital Signs Vital signs: Temp Pulse Resp BP Pulse Ox 97.5 F 88 16 142/79 H 93 03/09/18 21:54 03/09/18 21:54 03/09/18 21:54 03/09/18 21:54 03/09/18 21:54 Discharge - Discharge Clinical Impression: Fall Qualifiers: Encounter type: initial encounter Qualified Code(s): W19.XXXA - Unspecified fall, initial encounter Condition: Good Disposition: HOME, SELF-CARE Additional Instructions: Please return to the ER immediately if you develop pain, confusion, vomiting, or feel unwell. Please consider a seat belt for the wheelchair if falls or slipping from the wheelchair are a frequent occurrence. Follow up with your doctor in 1-2 days for reevlauation. Referrals: JUAN MARTÍNEZ MD [Primary Care Provider] - Follow up as needed
[2018-03-09 22:50] VITALS: BP 142/79
== END 2018-03-09 23:15 | disposition home or self-care (01) ==
LOC: ER 21:44
DX: M25.559 Pain in unspecified hip (principal); W05.0XXA Fall from non-moving wheelchair, initial encounter; Y92.129 Unspecified place in nursing home as the place of occurrence of the external cause; F03.90 Unspecified dementia, unspecified severity, without behavioral disturbance, psychotic disturbance, mood disturbance, and anxiety; I10 Essential (primary) hypertension
CPT/HCPCS: 99282

== ENCOUNTER 2018-03-23 16:45 | Inpatient (IN) | payer MEDICARE ==
[2018-03-23 17:21] LABS: ABSOLUTE LYMPHOCYTES (AUTO) 1.3 10^3/uL (0.5-4.7); ABSOLUTE MONOCYTES (AUTO) 1.4 10^3/uL (0.1-1.4); ABSOLUTE NEUT (AUTO) 11.9 10^3/uL (1.7-8.2); BASOPHILS % (AUTO) 0.3 % (0-2); HEMATOCRIT 38.7 % (36.0-47.0); HEMOGLOBIN 12.5 g/dL (12.0-15.5); LYMPHOCYTES % (AUTO) 8.8 % (13-45); MEAN CORPUSCULAR HEMOGLOBIN 30.3 pg (27.0-33.4); MEAN CORPUSCULAR HGB CONC 32.4 g/dL (32.0-36.0); MEAN CORPUSCULAR VOLUME 94 fl (80-97); MONOCYTES % (AUTO) 9.4 % (3-13); PLATELET COUNT 290 10^3/uL (150-450); RED BLOOD COUNT 4.14 10^6/uL (3.72-5.28); RED CELL DISTRIBUTION WIDTH 14.7 % (11.5-14.0); SEGMENTED NEUTROPHILS % (AUTO) 81.5 % (42-78); TOTAL CELLS COUNTED % (AUTO) 100 %; WHITE BLOOD COUNT 14.6 10^3/uL (4.0-10.5)
--- NOTE | 2018-03-23 17:26 | RADIOLOGY REPORT (SQ) ---
EXAM DESCRIPTION: CHEST SINGLE VIEW COMPLETED DATE/TIME: 03/23/2018 5:07 pm REASON FOR STUDY: bed 17 sepsis protocol COMPARISON: 10/29/2017 EXAM PARAMETERS: NUMBER OF VIEWS: One view. TECHNIQUE: Single frontal radiographic view of the chest acquired. RADIATION DOSE: NA LIMITATIONS: Patient has made a shallow inspiration FINDINGS: LUNGS AND PLEURA: No opacities, masses or pneumothorax. No pleural effusion. There are so me minimal linear densities in the left mid and lower lung feel which could represent subsegmental at electasis or scarring. Again there is evidence for obstructive lung disease. MEDIASTINUM AND HILAR STRUCTURES: No masses. Contour normal. HEART AND VASCULAR STRUCTURES: The configuration of the heart and mediastinal structures is unchanged . Tortuous thoracic aorta is again identified. BONES: No acute findings. HARDWARE: None in the chest. OTHER: No other significant finding. IMPRESSION: No significant interval change. No acute findings. Other findings as noted above TECHNICAL DOCUMENTATION: JOB ID: [id number] [employer]- All Rights Reserved Reading location - IP/workstation name: [email or web address]
[2018-03-23] MEDS ORDERED: NORMAL SALINE 500 ML IV ONE (17:41)
--- NOTE | 2018-03-23 17:41 | ER Document Report ---
ED General - General Chief Complaint: Shortness Of Breath Stated Complaint: SHORTNESS OF BREATH Time Seen by Provider: 03/23/18 17:09 Mode of Arrival: Medic Information source: Transfer Record, Emergency Med Personnel, [facility] Records, Outside Facility Records Cannot obtain history due to: Dementia Notes: 83-year-old female with vascular dementia presents via EMS from [facility]. EMS reported that nursing staff stated that the patient appeared to be more short of breath and hypoxic. EMS reports a oxygen saturation of 95% on room air upon their arrival. Patient is alert and oriented 1. She denies any physical complaints including chest pain, shortness of breath, headache, abdominal pain, dysuria. TRAVEL OUTSIDE OF THE [place] IN LAST 30 DAYS: No - HPI Onset: Just prior to arrival Quality of pain: No pain Associated symptoms: None - Related Data Allergies/Adverse Reactions: Penicillins Allergy (Mild, Verified 03/23/18 17:05) Hives cephalexin monohydrate [From Keflex] Allergy (Unknown, Verified 03/23/18 17:05) unknown propoxyphene HCl [From Darvon] Allergy (Unknown, Verified 03/23/18 17:05) unknown Past Medical History - General Information source: Patient, Emergency Med Personnel, [facility] Records, Outside Facility Records Cannot obtain history due to: Dementia - Social History Smoking Status: Unknown if Ever Smoked Frequency of alcohol use: None Drug Abuse: None Lives with: [facility] Family History: Reviewed & Not Pertinent, Other - Unknown to the patient - Past Medical History Cardiac Medical History: Reports: Hx Hypertension Denies: Hx Coronary Artery Disease, Hx Heart Attack Pulmonary Medical History: Denies: Hx Asthma, Hx Bronchitis, Hx COPD, Hx Pneumonia Neurological Medical History: Denies: Hx Cerebrovascular Accident, Hx Seizures Renal/ Medical History: Denies: Hx Peritoneal Dialysis Musculoskeltal Medical History: Denies Hx Arthritis Psychiatric Medical History: Reports: Hx Dementia Denies: Hx Depression Past Surgical History: Reports: Hx Orthopedic Surgery - hip. Denies: Hx Hysterectomy - Immunizations Hx Diphtheria, Pertussis, Tetanus Vaccination: No Review of Systems - Review of Systems -: Yes ROS unobtainable due to patient's medical condition Physical Exam - Vital signs Vitals: Temp Pulse Resp BP Pulse Ox 98.7 F 139 H 18 113/75 92 03/23/18 17:15 03/23/18 17:15 03/23/18 17:15 03/23/18 17:15 03/23/18 17:15 - Notes Notes: PHYSICAL EXAMINATION: GENERAL: Well-appearing, well-nourished and in no acute distress. HEAD: Atraumatic, normocephalic. EYES: Pupils equal round and reactive to light, extraocular movements intact, conjunctiva are normal. ENT: Nares patent, oropharynx clear without exudates. dry mucous membranes. NECK: Normal range of motion, supple without lymphadenopathy LUNGS: Breath sounds clear to auscultation bilaterally and equal. No wheezes rales or rhonchi. HEART: tachycardic no murmurs ABDOMEN: Soft, nontender, nondistended abdomen. No guarding, no rebound. No masses appreciated. Female : deferred Musculoskeletal: Normal range of motion, no pitting or edema. No cyanosis. NEUROLOGICAL: Cranial nerves grossly intact. Normal sensory, motor exams PSYCH: Normal mood, normal affect. SKIN: Warm, Dry, normal turgor, Course - Re-evaluation Re-evalutation: Laboratory 03/23/18 03/23/18 03/23/18 16:30 16:30 16:30 WBC 14.6 H RBC 4.14 Hgb 12.5 Hct 38.7 MCV 94 MCH 30.3 MCHC 32.4 RDW 14.7 H Plt Count 290 Seg Neutrophils % 81.5 H Lymphocytes % 8.8 L Monocytes % 9.4 Eosinophils % 0.0 Basophils % 0.3 Absolute Neutrophils 11.9 H Absolute Lymphocytes 1.3 Absolute Monocytes 1.4 Absolute Eosinophils 0.0 Absolute Basophils 0.0 PT Cancelled INR Cancelled VBG pH VBG pCO2 VBG HCO3 VBG Base Excess Sodium 143.8 Potassium 4.0 Chloride 106 Carbon Dioxide 20 L Anion Gap 18 BUN 21 H Creatinine 1.10 Est GFR ( Amer) 57 L Est GFR (Non-Af Amer) 47 L Glucose 126 H Lactic Acid Calcium 9.3 Total Bilirubin 2.4 H Direct Bilirubin 1.1 H Neonat Total Bilirubin Not Reportable Neonat Direct Bilirubin Not Reportable Neonat Indirect Bili Not Reportable AST 95 H ALT 35 Alkaline Phosphatase 117 Troponin I NT-Pro-B Natriuret Pep Total Protein 6.7 Albumin 3.6 Urine Color Urine Appearance Urine pH Ur Specific Jerome Urine Protein Urine Glucose (UA) Urine Ketones Urine Blood Urine Nitrite Urine Bilirubin Urine Urobilinogen Ur Leukocyte Esterase Urine WBC (Auto) Urine RBC (Auto) Squamous Epi Cells Auto Amorphous Sediment Auto Urine Mucus (Auto) Urine Ascorbic Acid 03/23/18 03/23/18 03/23/18 17:26 17:26 17:26 WBC RBC Hgb Hct MCV MCH MCHC RDW Plt Count Seg Neutrophils % Lymphocytes % Monocytes % Eosinophils % Basophils % Absolute Neutrophils Absolute Lymphocytes Absolute Monocytes Absolute Eosinophils Absolute Basophils PT INR VBG pH Cancelled VBG pCO2 Cancelled VBG HCO3 Cancelled VBG Base Excess Cancelled Sodium Potassium Chloride Carbon Dioxide Anion Gap BUN Creatinine Est GFR ( Amer) Est GFR (Non-Af Amer) Glucose Lactic Acid 7.1 H Calcium Total Bilirubin Direct Bilirubin Neonat Total Bilirubin Neonat Direct Bilirubin Neonat Indirect Bili AST ALT Alkaline Phosphatase Troponin I 0.150 NT-Pro-B Natriuret Pep Total Protein Albumin Urine Color Urine Appearance Urine pH Ur Specific Jerome Urine Protein Urine Glucose (UA) Urine Ketones Urine Blood Urine Nitrite Urine Bilirubin Urine Urobilinogen Ur Leukocyte Esterase Urine WBC (Auto) Urine RBC (Auto) Squamous Epi Cells Auto Amorphous Sediment Auto Urine Mucus (Auto) Urine Ascorbic Acid 03/23/18 03/23/18 03/23/18 17:49 19:25 19:25 WBC RBC Hgb Hct MCV MCH MCHC RDW Plt Count Seg Neutrophils % Lymphocytes % Monocytes % Eosinophils % Basophils % Absolute Neutrophils Absolute Lymphocytes Absolute Monocytes Absolute Eosinophils Absolute Basophils PT 15.4 INR 1.16 VBG pH 7.28 L VBG pCO2 48.1 VBG HCO3 22.0 VBG Base Excess -4.8 Sodium Potassium Chloride Carbon Dioxide Anion Gap BUN Creatinine Est GFR ( Amer) Est GFR (Non-Af Amer) Glucose Lactic Acid Calcium Total Bilirubin Direct Bilirubin Neonat Total Bilirubin Neonat Direct Bilirubin Neonat Indirect Bili AST ALT Alkaline Phosphatase Troponin I 0.185 NT-Pro-B Natriuret Pep Total Protein Albumin Urine Color Urine Appearance Urine pH Ur Specific Jerome Urine Protein Urine Glucose (UA) Urine Ketones Urine Blood Urine Nitrite Urine Bilirubin Urine Urobilinogen Ur Leukocyte Esterase Urine WBC (Auto) Urine RBC (Auto) Squamous Epi Cells Auto Amorphous Sediment Auto Urine Mucus (Auto) Urine Ascorbic Acid 03/23/18 03/23/18 03/23/18 19:25 21:00 22:06 WBC RBC Hgb Hct MCV MCH MCHC RDW Plt Count Seg Neutrophils % Lymphocytes % Monocytes % Eosinophils % Basophils % Absolute Neutrophils Absolute Lymphocytes Absolute Monocytes Absolute Eosinophils Absolute Basophils PT INR VBG pH VBG pCO2 VBG HCO3 VBG Base Excess Sodium Potassium Chloride Carbon Dioxide Anion Gap BUN Creatinine Est GFR ( Amer) Est GFR (Non-Af Amer) Glucose Lactic Acid 1.9 Calcium Total Bilirubin Direct Bilirubin Neonat Total Bilirubin Neonat Direct Bilirubin Neonat Indirect Bili AST ALT Alkaline Phosphatase Troponin I NT-Pro-B Natriuret Pep 4730 H Total Protein Albumin Urine Color HANANE Urine Appearance CLOUDY Urine pH 7.0 Ur Specific [place] 1.012 Urine Protein >=500 H Urine Glucose (UA) 150 H Urine Ketones TRACE H Urine Blood NEGATIVE Urine Nitrite NEGATIVE Urine Bilirubin NEGATIVE Urine Urobilinogen 4.0 H Ur Leukocyte Esterase NEGATIVE Urine WBC (Auto) 4 Urine RBC (Auto) 3 Squamous Epi Cells Auto 1 Amorphous Sediment Auto TRACE Urine Mucus (Auto) OCC Urine Ascorbic Acid NEGATIVE Chest X-Ray 03/23/18 16:55 IMPRESSION: No significant interval change. No acute findings. Other findings as noted above Head CT 03/23/18 17:10 IMPRESSION: CHRONIC CHANGES OF ATROPHY AND MICROVASCULAR ISCHEMIA. NO ACUTE PROCESS. EVIDENCE OF ACUTE STROKE: NO. 83-year-old female with vascular dementia presents via EMS from [facility]. EMS reported that nursing staff stated that the patient appeared to be more short of breath and hypoxic. EMS reports a oxygen saturation of 95% on room air upon their arrival. Patient is alert and oriented 1. She denies any physical complaints including chest pain, shortness of breath, headache, abdominal pain, dysuria. Upon arrival patient was placed on satellite project site monitor and EKG was obtained that showed the patient to be in sinus tachycardia at a rate of 140. CBC significant for leukocytosis. CMP shows elevated BUN. Patient had a markedly elevated lactate which resolved after fluids. Patient does have an elevated troponin, without EKG changes or chest pain. Patient appears to have new onset CHF with a BNP of over 4000. Unclear of the source of infection, elevated lactate. Patient received IV fluids, vancomycin. On re-evaluation patient is more awake and family is now at bedside. she is no c/o headache for which tylenol was given. Patient discussed with hospitalist who is agreeable to admission to [facility]. 03/23/18 20:19 Cardiology contacted regarding patient's elevated troponin. No further recommendations given at this time. 03/23/18 20:19 03/23/18 21:07 Spoke to the patient's brother who is power of commercial real estate attorney who informed me that the patient is a DNR. 03/23/18 21:52 03/23/18 22:33 03/24/18 00:14 03/24/18 02:26 - Vital Signs Vital signs: Temp Pulse Resp BP Pulse Ox 98.5 F 139 H 22 H 97/63 L 95 03/23/18 18:00 03/23/18 17:15 03/24/18 02:11 03/24/18 02:11 03/24/18 02:11 - Laboratory Result Diagrams: 03/23/18 16:30 03/23/18 16:30 Laboratory results interpreted by me: 03/23/18 03/23/18 03/23/18 16:30 16:30 17:26 WBC 14.6 H RDW 14.7 H Seg Neutrophils % 81.5 H Lymphocytes % 8.8 L Absolute Neutrophils 11.9 H VBG pH Carbon Dioxide 20 L BUN 21 H Est GFR ( Amer) 57 L Est GFR (Non-Af Amer) 47 L Glucose 126 H Lactic Acid 7.1 H Total Bilirubin 2.4 H Direct Bilirubin 1.1 H AST 95 H NT-Pro-B Natriuret Pep 03/23/18 03/23/18 19:25 19:25 WBC RDW Seg Neutrophils % Lymphocytes % Absolute Neutrophils VBG pH 7.28 L Carbon Dioxide BUN Est GFR ( Amer) Est GFR (Non-Af Amer) Glucose Lactic Acid Total Bilirubin Direct Bilirubin AST NT-Pro-B Natriuret Pep 4730 H - Diagnostic Test Radiology reviewed: Image reviewed, Reports reviewed - Now 3 - EKG Interpretation by Me EKG shows normal: Sinus rhythm Rate: Normal Rhythm: NSR Procedures - Ultrasound/Bedside Ultrasound/Bedside Time completed: 21:51 - Bedside ultrasound was performed evaluating the heart for pericardial effusion, global function. No pericardial effusion noted. Patient does have poor contractility. Discharge - Discharge Clinical Impression: Elevated troponin, Elevated serum lactate dehydrogenase Sepsis Qualifiers: Sepsis type: sepsis due to unspecified organism Qualified Code(s): A41.9 - Sepsis, unspecified organism Vascular dementia Qualifiers: Dementia behavioral disturbance: with behavioral disturbance Qualified Code(s) : F01.51 - Vascular dementia with behavioral disturbance Congestive heart failure Qualifiers: Heart failure type: unspecified Heart failure chronicity: acute Qualified Code( s): I50.9 - Heart failure, unspecified Condition: Fair Disposition: ADMITTED INPATIENT Admitting Provider: Hospitalist Unit Admitted: [facility]
[2018-03-23 17:43] LABS: ALANINE AMINOTRANSFERASE 35 U/L (9-52); ALBUMIN 3.6 g/dL (3.5-5.0); ALKALINE PHOSPHATASE 117 U/L (38-126); ANION GAP 18 (5-19); ASPARTATE AMINO TRANSFERASE 95 U/L (14-36); BILIRUBIN,DIRECT 1.1 mg/dL (0.0-0.4); BILIRUBIN,TOTAL 2.4 mg/dL (0.2-1.3); BLOOD UREA NITROGEN 21 mg/dL (7-20); CALCIUM 9.3 mg/dL (8.4-10.2); CARBON DIOXIDE 20 mmol/L (22-30); CHLORIDE 106 mmol/L (98-107); GLUCOSE 126 mg/dL (75-110); SODIUM 143.8 mmol/L (137-145); TOTAL PROTEIN 6.7 g/dL (6.3-8.2)
[2018-03-23 18:07] LABS: INTERNATIONAL RATION (INR) 1.16; PROTHROMBIN TIME 15.4 SEC (11.4-15.4)
--- NOTE | 2018-03-23 18:13 | RADIOLOGY REPORT (SQ) ---
EXAM DESCRIPTION: CT HEAD WITHOUT COMPLETED DATE/TIME: 03/23/2018 5:59 pm REASON FOR STUDY: ams COMPARISON: None. TECHNIQUE: Axial images acquired through the brain without intravenous contrast. Images reviewed wi th bone, brain and subdural windows. Additional sagittal and coronal reconstructions were generated. Images stored on PACS. All CT scanners at this facility use dose modulation, iterative reconstruction, and/or weight based d osing when appropriate to reduce radiation dose to as low as reasonably achievable (ALARA). [facility]: Dose Right [facility]: CareDose [facility]: Dose Right [facility]: Teradose 4D [facility]: [employer] RADIATION DOSE: CT Rad equipment meets quality standard of care and radiation dose reduction techniq ues were employed. CTDIvol: 53.2 mGy. DLP: 964 mGy-cm.mGy. LIMITATIONS: None. FINDINGS: VENTRICLES: Prominent. CEREBRUM: No masses. No hemorrhage. No midline shift. Areas of low density in the white matter mos t likely due to chronic micro-vascular ischemic change. No evidence for acute infarction. CEREBELLUM: No masses. No hemorrhage. No alteration of density. No evidence for acute infarction. EXTRAAXIAL SPACES: Age-related involutional change. No fluid collections. No masses. ORBITS AND GLOBE: No intra- or extraconal masses. Normal contour of globe without masses. CALVARIUM: No fracture. PARANASAL SINUSES: No fluid or mucosal thickening. SOFT TISSUES: No mass or hematoma. OTHER: No other significant finding. IMPRESSION: CHRONIC CHANGES OF ATROPHY AND MICROVASCULAR ISCHEMIA. NO ACUTE PROCESS. EVIDENCE OF ACUTE STROKE: NO. TECHNICAL DOCUMENTATION: JOB ID: [id number] Quality ID # [id number]: Final reports with documentation of one or more dose reduction techniques (e.g., Au tomated exposure control, adjustment of the mA and/or kV according to patient size, use of iterative reconstruction technique) 2010 [employer]- All Rights Reserved Reading location - IP/workstation name: [email or web address]
[2018-03-23] MEDS ORDERED: VANCOMYCIN HCL INJ 1000 MG VIAL IV ONE (18:51)
[2018-03-23] MEDS: NORMAL SALINE 1000 ML 1,000 ML IV PRN ×2 (19:37→21:17)
[2018-03-23 19:49] LABS: VENOUS BLOOD BASE EXCESS -4.8 mmol/L; VENOUS BLOOD PCO2 48.1 mmHg (35-63); VENOUS BLOOD PH 7.28 (7.30-7.42)
[2018-03-23] MEDS ORDERED: NORMAL SALINE 1000 ML 1,000 ML IV ONE (20:20)
[2018-03-23] MEDS ORDERED: ENOXAPARIN SODIUM INJ 60 MG/0.6 ML DISP.SYRIN SUBCUT ONE (20:34)
[2018-03-23] MEDS ORDERED: IPRATROPIUM/ALBUTEROL 0.5-2.5 MG/3 ML AMPUL NEB PRN (21:59)
[2018-03-23] MEDS ORDERED: ACETAMINOPHEN 325 MG TABLET PO PRN (21:59)
[2018-03-23] MEDS ORDERED: CIPROFLOXACIN 400 MG/D5W RTU 400 MG/200 ML RTUPB IV SCH (22:00)
[2018-03-23] MEDS ORDERED: VANCOMYCIN HCL 0 MG in DEXTROSE 5%-WATER 250 ML IV NR (22:15)
[2018-03-23 22:29] LABS: AMORPHOUS SEDIMENT,URINE TRACE /HPF; APPEARANCE,URINE CLOUDY; BILIRUBIN,URINE NEGATIVE (NEGATIVE); COLOR,URINE AMBER; GLUCOSE, URINE 150 mg/dL (NEGATIVE); KETONES,URINE TRACE mg/dL (NEGATIVE); LEUKOCYTE ESTERASE,URINE NEGATIVE (NEGATIVE); NITRITE,URINE NEGATIVE (NEGATIVE); PROTEIN,URINE >=500 mg/dL (NEGATIVE); URINE SPECIFIC GRAVITY 1.012
[2018-03-23 23:01] LABS: CREATINE KINASE MB 4.84 ng/mL (<4.55); TROPONIN I 0.236 ng/mL
[2018-03-24] MEDS ORDERED: MORPHINE SULFATE 10 MG/ML INJ IV PRN (00:05)
[2018-03-24] MEDS ORDERED: ASPIRIN 81 MG TABLET, CHEWABLE PO ONE (00:13)
[2018-03-24] MEDS ORDERED: NITROGLYCERIN 0.4 MG/TAB 25 TAB/BOTTLE SL PRN (00:13)
[2018-03-24] MEDS ORDERED: NITROGLYCERIN 0.4 MG/TAB 25 TAB/BOTTLE SL ONE (00:13)
[2018-03-24] MEDS ORDERED: LORAZEPAM INJ 2 MG/1 ML VIAL IV PRN (00:21)
--- NOTE | 2018-03-24 04:36 | PDOC H&P ---
History of Present Illness Admission Date/PCP: 03/23/18 22:05 JUAN MARTÍNEZ MD Patient complains of: Shortness of breath History of Present Illness: PRAMOD CHRISTOPHER is a 83 year old female with history of dementia with delirium who is a long-term [facility] resident of [facility]. She is noted by staff to have shortness of breath and tachypnea. EMS reports oxygen of 95% on room air, alert and oriented 1. In the emergency room she is found hypotensive in the 90s systolic with tachycardia in the 130s, leukocytosis but an unremarkable chest x-ray or urinalysis. She is thought to have a occult source of sepsis started on empiric antibiotics and referred to the hospitalist for admission. The patient is awake and alert and initially denies pain and complains of her chest feeling a little rough. Cardiac enzymes returned markedly elevated. She started on aspirin, nitroglycerin, morphine as needed. Patient's power of lube technician and brother Caesar Crystal at [phone] verifies her wishes for conservative management and DNR status. Past Medical History Cardiac Medical History: Reports: Hypertension Denies: Coronary Artery Disease, Myocardial Infarction Pulmonary Medical History: Denies: Asthma, Bronchitis, Chronic Obstructive Pulmonary Disease (COPD), Pneumonia Neurological Medical History: Denies: Seizures Musculoskeltal Medical History: Denies: Arthritis Psychiatric Medical History: Reports: Dementia Denies: Depression Hematology: Denies: Anemia Past Surgical History Past Surgical History: Reports: Orthopedic Surgery - hip Denies: Hysterectomy Social History Information Source: POA - Power of Injection Molding Supervisor, [facility] Records Lives with: [facility] Smoking Status: Unknown if Ever Smoked Frequency of Alcohol Use: None Hx Recreational Drug Use: No Drugs: None Hx Prescription Drug Abuse: No - Advance Directive Resuscitation Status: Do Not Resuscitate Family History Family History: Reviewed & Not Pertinent, Other - Unknown to the patient Parental Family History Reviewed: Yes - Unknown Children Family History Reviewed: Yes - Unknown Sibling(s) Family History Reviewed.: Yes - Unknown Medication/Allergy Home Medications: Bisoprolol/Hydrochlorothiazide [Ziac 2.5-6.25 mg Tablet] 1 tab PO DAILY Docusate Sodium [Colace 100 mg Capsule] 100 mg PO BID capsule 08/05/17 Quetiapine Fumarate [Seroquel 25 mg Tablet] 25 mg PO QHS tablet 08/05/17 Oxycodone HCl/Acetaminophen [Percocet 5-325 mg Tablet] 1 - 2 tab PO Q4H PRN #15 tablet 09/14/17 Clindamycin HCl 300 mg PO TID #30 capsule 11/13/17 Allergies/Adverse Reactions: Penicillins Allergy (Mild, Verified 03/23/18 17:05) Hives cephalexin monohydrate [From Keflex] Allergy (Unknown, Verified 03/23/18 17:05) unknown propoxyphene HCl [From Darvon] Allergy (Unknown, Verified 03/23/18 17:05) unknown Review of Systems ROS unobtainable: Due to mental status Physical Exam Vital Signs: Temp Pulse Resp BP Pulse Ox 98.5 F 139 H 19 94/66 L 95 03/23/18 18:00 03/23/18 17:15 03/24/18 02:15 03/24/18 02:15 03/24/18 02:15 General appearance: PRESENT: no acute distress, cooperative, other - Chronically ill-appearing with temporal wasting and cachexia. ABSENT: mild distress, morbidly obese, obese Head exam: PRESENT: atraumatic, normocephalic Eye exam: PRESENT: conjunctiva pink, EOMI, PERRLA. ABSENT: scleral icterus Ear exam: PRESENT: normal external ear exam Mouth exam: PRESENT: moist, tongue midline Neck exam: ABSENT: carotid bruit, JVD, lymphadenopathy, thyromegaly Respiratory exam: PRESENT: clear to auscultation diana. ABSENT: rales, rhonchi, wheezes Cardiovascular exam: PRESENT: RRR. ABSENT: diastolic murmur, rubs, systolic murmur Pulses: PRESENT: normal dorsalis pedis pul Vascular exam: PRESENT: normal capillary refill GI/Abdominal exam: PRESENT: normal bowel sounds, soft. ABSENT: distended, guarding, mass, organolmegaly, rebound, tenderness Rectal exam: PRESENT: deferred Extremities exam: PRESENT: full ROM, tenderness - Multiple abrasions to the anterior leg bilaterally with mild erythema, no exudate. ABSENT: calf tenderness, clubbing, pedal edema Neurological exam: PRESENT: alert, awake, oriented to person, CN II-XII grossly intact. ABSENT: oriented to place, oriented to time Psychiatric exam: PRESENT: appropriate affect, normal mood. ABSENT: homicidal ideation, suicidal ideation Skin exam: PRESENT: dry, intact, warm, other - Stage III sacral decubitus. ABSENT: cyanosis, rash Results Laboratory Results: 03/23/18 22:06 Urine Color HANANE Urine Appearance CLOUDY Urine pH 7.0 Ur Specific [place] 1.012 Urine Protein >=500 H Urine Glucose (UA) 150 H Urine Ketones TRACE H Urine Blood NEGATIVE Urine Nitrite NEGATIVE Ur Leukocyte Esterase NEGATIVE Urine WBC (Auto) 4 Urine RBC (Auto) 3 03/23/18 03/23/18 22:20 22:20 Creatine Kinase 217 H CK-MB (CK-2) 4.84 H Troponin I 0.236 Impressions: Chest X-Ray 03/23/18 16:55 IMPRESSION: No significant interval change. No acute findings. Other findings as noted above Head CT 03/23/18 17:10 IMPRESSION: CHRONIC CHANGES OF ATROPHY AND MICROVASCULAR ISCHEMIA. NO ACUTE PROCESS. EVIDENCE OF ACUTE STROKE: NO. Assessment & Plan - Diagnosis (1) Acute coronary syndrome Is this a current diagnosis for this admission?: Yes Plan: IMCU admission, conservative management, aspirin, nitroglycerin, supplemental oxygen and statin. Follow-up serial cardiac enzymes (2) Congestive heart failure Qualifiers: Heart failure type: unspecified Heart failure chronicity: acute Qualified Code(s): I50.9 - Heart failure, unspecified Is this a current diagnosis for this admission?: Yes Plan: Secondary to #1 no clear underlying cause otherwise. Supportive conservative care, diuresis as tolerated (3) Sepsis Qualifiers: Sepsis type: sepsis due to unspecified organism Qualified Code(s): A41.9 - Sepsis, unspecified organism Is this a current diagnosis for this admission?: Yes Plan: Unclear source, empiric antibiotics initiated follow-up CBC and culture - Time Time Spent: 50 to 70 Minutes - Inpatient Certification Medical Necessity: Need Close Monitoring Due to Risk of Patient Decompensation
[2018-03-24 04:54] LABS: ABSOLUTE LYMPHOCYTES (AUTO) 1.2 10^3/uL (0.5-4.7); ABSOLUTE MONOCYTES (AUTO) 1.2 10^3/uL (0.1-1.4); BASOPHILS % (AUTO) 0.2 % (0-2); HEMATOCRIT 29.9 % (36.0-47.0); LYMPHOCYTES % (AUTO) 11.3 % (13-45); MEAN CORPUSCULAR HEMOGLOBIN 31.3 pg (27.0-33.4); MEAN CORPUSCULAR HGB CONC 33.7 g/dL (32.0-36.0); MEAN CORPUSCULAR VOLUME 93 fl (80-97); MONOCYTES % (AUTO) 11.6 % (3-13); PLATELET COUNT 161 10^3/uL (150-450); RED BLOOD COUNT 3.22 10^6/uL (3.72-5.28); RED CELL DISTRIBUTION WIDTH 14.5 % (11.5-14.0); SEGMENTED NEUTROPHILS % (AUTO) 76.9 % (42-78); TOTAL CELLS COUNTED % (AUTO) 100 %; WHITE BLOOD COUNT 10.5 10^3/uL (4.0-10.5)
[2018-03-24 05:01] LABS: HEMOGLOBIN 10.1 g/dL (12.0-15.5)
[2018-03-24 05:26] LABS: ALANINE AMINOTRANSFERASE 55 U/L (9-52); ALBUMIN 2.4 g/dL (3.5-5.0); ALKALINE PHOSPHATASE 91 U/L (38-126); ANION GAP 9 (5-19); ASPARTATE AMINO TRANSFERASE 111 U/L (14-36); BILIRUBIN,DIRECT 0.7 mg/dL (0.0-0.4); BILIRUBIN,TOTAL 1.1 mg/dL (0.2-1.3); BLOOD UREA NITROGEN 29 mg/dL (7-20); CALCIUM 8.1 mg/dL (8.4-10.2); CARBON DIOXIDE 24 mmol/L (22-30); CHLORIDE 111 mmol/L (98-107); CREATINE KINASE 178 U/L (30-135); GLUCOSE 105 mg/dL (75-110); POTASSIUM 3.9 mmol/L (3.6-5.0)
[2018-03-24 05:37] LABS: CREATINE KINASE MB 4.05 ng/mL (<4.55); TROPONIN I 0.242 ng/mL
[2018-03-24] MEDS: HEPARIN SOD (PORCINE) 5,000 UNIT/ML 1 ML SYRINGE SUBCUT SCH ×3 (06:38→21:02)
--- NOTE | 2018-03-24 08:00 | EKG REPORT ---
SEVERITY:- ABNORMAL ECG - ATRIAL FIBRILLATION LOW VOLTAGE IN FRONTAL LEADS : Confirmed by: Graciela Potter MD 24-Mar-2018 07:59:36
--- NOTE | 2018-03-24 08:00 | EKG REPORT ---
SEVERITY:- ABNORMAL ECG - SINUS TACHYCARDIA CONSIDER LEFT VENTRICULAR HYPERTROPHY : Confirmed by: Graciela Potter MD 24-Mar-2018 07:59:41
[2018-03-24] MEDS: DOCUSATE SODIUM 100 MG CAPSULE PO SCH ×2 (09:18→18:24)
[2018-03-24] MEDS ORDERED: LEVOFLOXACIN 500 MG/D5W RTU 500 MG/100 ML RTUPB IV SCH (10:00)
[2018-03-24 11:32] LABS: CREATINE KINASE MB 2.88 ng/mL (<4.55); TROPONIN I 0.206 ng/mL
[2018-03-24] MEDS ORDERED: NORMAL SALINE 1000 ML 1,000 ML IV PRN (11:33)
[2018-03-24 17:06] VITALS: BP 125/75
[2018-03-24] MEDS ORDERED: VANCOMYCIN HCL 500 MG in NORMAL SALINE 100 ML IV SCH (18:00)
[2018-03-24] MEDS ORDERED: VANCOMYCIN HCL 500 MG in DEXTROSE 5%-WATER 100 ML IV SCH (18:00)
--- NOTE | 2018-03-25 07:37 | PDOC PROGRESS REPORT ---
Subjective Progress Note for:: 03/25/18 Subjective:: PRAMOD CHRISTOPHER is a 83 year old female with history of dementia with delirium who is a long-term shelter resident of [facility]. She was transported by EMS to [facility] ED for shortness of breath, tachypnea, hypotension and tachycardia. She was admitted to the hospitalist service for sepsis. Of note, cardiac enzymes returned markedly elevated. Patient's POA Caesar Crystal (brother) verifies her wishes for conservative management and DNR status. Patient seen this morning on rounds. She is nonverbal, responds only to verbal and tactile stimuli. Lungs are clear to auscultation. At the time of admission, the patient was presumed to be septic without a known source. Upon further evaluation, the patient has multiple open open wounds on her legs, as well as a stage III sacral pressure ulcer. One open wound on the LLE is surrounded by a large area of erythema and mild edema. There is no drainage from the open wound , but there is surrounding cellulitis. It is possible that this could be the source of infection. Reason For Visit: SEPSIS UTI CHF ACS Physical Exam Vital Signs: Temp Pulse Resp BP Pulse Ox 98.4 F 119 H 15 122/81 100 03/24/18 16:36 03/24/18 19:00 03/24/18 16:36 03/24/18 16:36 03/24/18 16:36 Intake & Output 03/23/18 03/24/18 03/25/18 06:59 06:59 06:59 Output Total 50 300 Balance -50 -300 Weight 53.5 kg 50.2 kg Results Laboratory Results: 03/24/18 04:30 03/24/18 04:30 03/23/18 03/23/18 03/24/18 22:20 22:20 04:30 Creatine Kinase 217 H 178 H CK-MB (CK-2) 4.84 H Troponin I 0.236 03/24/18 03/24/18 03/24/18 04:30 10:43 10:43 Creatine Kinase 109 CK-MB (CK-2) 4.05 2.88 Troponin I 0.242 0.206 Impressions: Chest X-Ray 03/23/18 16:55 IMPRESSION: No significant interval change. No acute findings. Other findings as noted above Head CT 06/25/18 17:10 IMPRESSION: CHRONIC CHANGES OF ATROPHY AND MICROVASCULAR ISCHEMIA. NO ACUTE PROCESS. EVIDENCE OF ACUTE STROKE: NO. Assessment & Plan - Diagnosis (1) Sepsis Qualifiers: Sepsis type: sepsis due to unspecified organism Qualified Code(s): A41.9 - Sepsis, unspecified organism Is this a current diagnosis for this admission?: Yes Plan: Unclear etiology, possibly cellulitis of LLE Continue empiric antibiotic coverage with Vancomycin and Levaquin Maintenance IVF NS @ 75mL/hr Blood cultures pending Urine negative for UTI (2) Acute coronary syndrome Is this a current diagnosis for this admission?: Yes Plan: Acute Coronary Syndrome. Elevated troponin without EKG changes. No plan for cardiac catheterization per family request ASA therapy Morphine IV for pain control (3) Elevated troponin Is this a current diagnosis for this admission?: Yes Plan: Plan as above (4) DNR (do not resuscitate) Is this a current diagnosis for this admission?: Yes Plan: POA is brother who verifies that the patient wishes to be DNR - Time Time Spent with patient: 15-24 minutes Anticipated discharge: SNF - Inpatient Certification Based on my medical assessment, after consideration of the patient's comorbidities, presenting symptoms, or acuity I expect that the services needed warrant INPATIENT care.: Yes I certify that my determination is in accordance with my understanding of Medicare's requirements for reasonable and necessary INPATIENT services [42 CFR 412.3e].: Yes Medical Necessity: Risk of Complication if Not Cared For in Hospital - Plan Summary Plan Summary: CONTINUE IVF AND ANTIBIOTICS. FOLLOW UP LAB WORK IN AM. NO HEROIC MEASURES PER FAMILY REQUEST. PATIENT IS DNR.
--- NOTE | 2018-03-25 07:44 | Death Summary ---
Summary Date : 03/24/18 Time of :: 20:07 Autopsy: No Resuscitation Status: Do Not Resuscitate - Final Diagnosis (1) Sepsis Is this a current diagnosis for this admission?: Yes (2) Acute coronary syndrome Is this a current diagnosis for this admission?: Yes (3) Elevated troponin Is this a current diagnosis for this admission?: Yes (4) DNR (do not resuscitate) Is this a current diagnosis for this admission?: Yes Hospital Course:: 83 Y.O. F admitted to [facility] for sepsis of unknown source. She was treated with empiric IV antibiotics and IVF. Of note, the patient's troponin was elevated without EKG changes. Patient's family declined cardiac catheterization or other heroic measures to treat NSTEMI. Treated with aspirin, morphine, and oxygen. Patient was transferred to 3rd floor around 1500, at 1955 the patient displayed symptoms of respiratory distress and became unresponsive. Time of 1999. For a more detailed account of the events leading up to her , please review the chart and nursing notes.
== END 2018-03-24 22:34 | disposition left against medical advice (07) | DRG 871 ==
LOC: ER 16:45 → EH 22:05 → 3N 03-24 15:08
PROVIDERS: ADMIT Internal Medicine; ATTEND Internal Medicine
PROC: 3E0F73Z Introduction of Anti-inflammatory into Respiratory Tract, Via Natural or Artificial Opening (ICD-10-PCS; principal; 2018-03-24)
DX: A41.9 Sepsis, unspecified organism (principal); L89.153 Pressure ulcer of sacral region, stage 3; I24.9 Acute ischemic heart disease, unspecified; F05 Delirium due to known physiological condition; L03.116 Cellulitis of left lower limb; Z66 Do not resuscitate; I50.9 Heart failure, unspecified; F03.90 Unspecified dementia, unspecified severity, without behavioral disturbance, psychotic disturbance, mood disturbance, and anxiety; I11.0 Hypertensive heart disease with heart failure; S81.802A Unspecified open wound, left lower leg, initial encounter; S81.801A Unspecified open wound, right lower leg, initial encounter; Z88.6 Allergy status to analgesic agent; Z88.1 Allergy status to other antibiotic agents; Z88.0 Allergy status to penicillin; Z79.899 Other long term (current) drug therapy
CPT/HCPCS: 36415; 70450; 71045; 80053; 80307; 81001; 82550; 82553; 82803; 83605; 83880; 84484; 85025; 85610; 87040; 87086; 93005; 93010; 96361; 96365; 96366; 96372; 99285; J0744; J1644; J1650; J1956; J2270; J3370; J7030; J7040; J7620